=== PATIENT | male | born 1970 | race Caucasian/White ===

== ENCOUNTER 2019-05-09 18:01 | Inpatient (IN) | payer OTHER ==
--- NOTE | 2019-05-09 20:31 | PDOC ---
History of Present Illness - General Chief Complaint: Pain Stated Complaint: ABD PAIN Time Seen by Provider: 05/09/19 19:14 History Source: Patient - History of Present Illness Initial Comments: 05/09/19 20:50 Mr. Martell is a 48 y/o man with no PMH presenting with four days of worsening RUQ abdominal pain. He reports that the pain began all at once, rates the pain a 10/10, describes it as constant, and reports that it radiates through his abdomen but is worst at the RUQ. He reports that he has not had any appetite and has not eaten today, but denies any nausea or vomiting. He reports some diaphoresis. He denies any prior abdominal surgery, any prior kidney stones. He denies any fever, chills, fatigue, night sweats. Timing/Duration: other (4 days) Past History - Past Medical History Allergies/Adverse Reactions: Allergies Allergy/AdvReac Type Severity Reaction Status Date / Time No Known Allergies Allergy Verified 05/09/19 18:13 - Suicide/Smoking/Psychosocial Hx Smoking History: Never smoked Hx Alcohol Use: No Drug/Substance Use Hx: No Review of Systems - Review of Systems Able to Perform ROS?: Yes Comments:: 05/09/19 22:06 ROS: GENERAL/CONSTITUTIONAL: No fever or chills. No weakness. HEAD, EYES, EARS, NOSE AND THROAT: No change in vision. No ear pain or discharge. No sore throat. CARDIOVASCULAR: No chest pain or shortness of breath RESPIRATORY: No cough, wheezing, or hemoptysis. GASTROINTESTINAL: Diminished appetite. Abdominal pain. No nausea, vomiting, diarrhea or constipation. GENITOURINARY: No dysuria, frequency, or change in urination. MUSCULOSKELETAL: No joint or muscle swelling or pain. No neck or back pain. SKIN: No rash NEUROLOGIC: No headache, vertigo, loss of consciousness, or change in strength/ sensation. ENDOCRINE: No increased thirst. No abnormal weight change HEMATOLOGIC/LYMPHATIC: No anemia, easy bleeding, or history of blood clots. ALLERGIC/IMMUNOLOGIC: No hives or skin allergy. *Physical Exam - Vital Signs Last Vital Signs Temp Pulse Resp BP Pulse Ox 98.7 F 106 H 22 H 122/80 99 05/09/19 18:05 05/09/19 18:05 05/09/19 18:05 05/09/19 18:05 05/09/19 18:05 - Physical Exam Comments: 05/09/19 22:07 PE: GENERAL: Awake, alert, and fully oriented. Holding abdomen, grimacing. HEAD: No signs of trauma, normocephalic, atraumatic EYES: PERRLA, EOMI, sclera anicteric, conjunctiva clear ENT: Auricles normal inspection, hearing grossly normal, nares patent, oropharynx clear without exudates. Moist mucosa NECK: Normal ROM, supple, no lymphadenopathy, JVD, or masses LUNGS: No distress, speaks full sentences, clear to auscultation bilaterally HEART: Regular rate and rhythm, normal S1 and S2, no murmurs, rubs or gallops, peripheral pulses normal and equal bilaterally. ABDOMEN: Mild tenderness to palpation of R upper and R lower quadrants. +R CVA tenderness. Soft, nontender, normoactive bowel sounds. No guarding, no rebound. No masses EXTREMITIES : Normal inspection, Normal range of motion, no edema. No clubbing or cyanosis. SKIN: Warm, Dry, normal turgor, no rashes or lesions noted ED Treatment Course - LABORATORY CBC & Chemistry Diagram: 05/09/19 20:30 05/09/19 20:30 Medical Decision Making - Medical Decision Making 05/09/19 21:15 48 y/o M with no PMH presenting with 4 days of worsening abd pain localized to RUQ, diminished appetite, vague GI symptoms with mild tenderness to palpation and R CVA tenderness. Differential includes appendicitis, cholecystitis or other gallbladder pathology, and nephrolithiasis. Plan for basic labs, abdominal imaging. Plan: CBC CMP Lipase Lactate IV NS 1L Bolus 4 mg Zofran 4 mg Morphine Dispo: Pending labs and imaging 05/09/19 21:58 Initial labs within normal limits. Pending CT vs abdominal US 05/09/19 21:59 Patient signed out to Dr. Rico at end of shift. *DC/Admit/Observation/Transfer Diagnosis at time of Disposition: Abdominal pain Qualifiers: Abdominal location: right upper quadrant Qualified Code(s): R10.11 - Right upper quadrant pain - Referrals - Patient Instructions - Post Discharge Activity
[2019-05-09 20:46] LABS: BASO % 0.7 % (0-2.0); EOS % 1.3 % (0-4.5); HEMATOCRIT 46.2 % (35.4-49); HEMOGLOBIN 15.8 GM/dL (11.7-16.9); LYMPH % 14.4 % (8-40); MCH 31.2 pg (25.7-33.7); MCHC 34.2 g/dl (32.0-35.9); MEAN CELL VOLUME 91.1 fl (80-96); MEAN PLT VOLUME 7.8 fl (7.5-11.1); NEUT % 76.6 % (42.8-82.8); PLATELET COUNT 290 K/MM3 (134-434); RBC 5.07 M/mm3 (4.00-5.60); RDW 12.8 % (11.9-15.9); WHITE BLOOD COUNT 10.9 K/mm3 (4.0-10.0)
[2019-05-09] MEDS ORDERED: morphine CARPU-JECT 4 MG/1 ML DISP.SYRIN IVPUSH ONE (20:48)
[2019-05-09] MEDS ORDERED: ONDANSETRON 4 MG/2 ML VIAL IVPUSH ONE (20:48)
[2019-05-09] MEDS ORDERED: morphine SULFATE 4 MG/ML VIAL ONE (21:04)
[2019-05-09] MEDS ORDERED: ONDANSETRON 4 MG/2 ML VIAL ONE (21:04)
[2019-05-09 21:14] LABS: ALBUMIN 3.4 g/dl (3.4-5.0); BILIRUBIN,TOTAL 0.9 mg/dL (0.2-1); BLOOD UREA NITROGEN 12.9 mg/dL (7-18); CALCIUM 9.2 mg/dL (8.5-10.1); CREATININE 0.9 mg/dL (0.55-1.3); POTASSIUM 3.8 mmol/L (3.5-5.1); TOT PROT 6.9 g/dl (6.4-8.2)
--- NOTE | 2019-05-09 22:30 | PDOC ---
*Physical Exam - Vital Signs Last Vital Signs Temp Pulse Resp BP Pulse Ox 98.7 F 106 H 22 H 122/80 99 05/09/19 18:05 05/09/19 18:05 05/09/19 18:05 05/09/19 18:05 05/09/19 18:05 ED Treatment Course - LABORATORY CBC & Chemistry Diagram: 05/09/19 20:30 05/09/19 20:30 - ADDITIONAL ORDERS Additional order review: Laboratory Results 05/09/19 20:30 Sodium 138 Potassium 3.8 Chloride 104 Carbon Dioxide 26 Anion Gap 9 BUN 12.9 Creatinine 0.9 Est GFR (CKD-EPI)AfAm 118.30 Est GFR (CKD-EPI)NonAf 102.07 Random Glucose 93 Calcium 9.2 Total Bilirubin 0.9 AST 12 L ALT 29 Alkaline Phosphatase 61 Total Protein 6.9 Albumin 3.4 Lipase 100 05/09/19 20:30 RBC 5.07 MCV 91.1 MCHC 34.2 RDW 12.8 MPV 7.8 Neutrophils % 76.6 Lymphocytes % 14.4 Monocytes % 7.0 Eosinophils % 1.3 Basophils % 0.7 - Medications Given in the ED: ED Medications Discontinued Medications Generic Name Dose Route Start Last Admin Trade Name Freq PRN Reason Stop Dose Admin Morphine Sulfate 4 mg 05/09/19 20:48 05/09/19 21:15 Morphine Injection - IVPUSH 05/09/19 20:49 4 mg ONCE ONE Administration Ondansetron HCl 4 mg 05/09/19 20:48 05/09/19 21:15 Zofran Injection IVPUSH 05/09/19 20:49 4 mg ONCE ONE Administration Medical Decision Making - Medical Decision Making 05/09/19 22:00 Received sign out from resident Dr. Lyon. In short, the pt is a 48 y/o male presenting for RUQ abdominal pain. Labs unremarkable for significant derangement. Will f/u on pending CTAP. CTAB revealed acute appendicitis. Will prescribe Unasyn for abx coverage. Ordered CXR and EKG for admission. Made NPO. 05/09/19 23:[address] Manley, surgeon container finisher. Verbally appraised of the pts HPI, ED course, and current plan of management. Requests pt be admitted in anticipation of surgical intervention tomorrow. Discussed imaging and laboratory results with pt. Answered all questions. Pt expressed verbal understanding and agreement with plan for admission. States his pain has improved after the IV medication. Does not want any further pain medication at this time. Microblog sent to [facility] for admission. Awaiting call back. 05/09/19 23:[address] Tele[address] discussion with resident Dr. Barrientos. Verbally appraised of the pts HPI, ED course, and current plan of management. Will admit pt to med/surg for attending Dr. Mcdonnell. *DC/Admit/Observation/Transfer Diagnosis at time of Disposition: Abdominal pain Qualifiers: Abdominal location: right upper quadrant Qualified Code(s): R10.11 - Right upper quadrant pain Appendicitis, acute Qualifiers: Acute appendicitis type: unspecified acute appendicitis type Qualified Code(s) : K35.80 - Unspecified acute appendicitis - Discharge Dispostion Condition at time of disposition: Stable Decision to Admit order: Yes - Referrals - Patient Instructions - Post Discharge Activity
--- NOTE | 2019-05-09 23:21 | PDOC ---
Documentation entered by Navdeep Mitchell SCRIBE, acting as scribe for Vidya Hinton MD. Vidya Hinton MD: This documentation has been prepared by the Stephen darling Joel, SCRIBE, under my direction and personally reviewed by me in its entirety. I confirm that the documentation accurately reflects all work, treatment, procedures, and medical decision making performed by me. Attending Attestation - Resident Resident Name: Mohan Lyon - ED Attending Attestation I have performed the following: I have examined & evaluated the patient, The case was reviewed & discussed with the resident, I agree w/resident's findings & plan, Exceptions are as noted - HPI HPI: 05/09/19 20:45 The patient is a 48 year old male with no significant PMH who presents to the emergency department for evaluation of RUQ abdominal pain for the past 4 days. The patient denies chest pain, shortness of breath, headache and dizziness. Denies fever, chills, nausea, vomit, diarrhea and constipation. Denies dysuria, frequency, urgency and hematuria. Allergies: NKA Past surgical history: None reported. Social history: No reported cigarette, alcohol, or drug use. - Physicial Exam PE: 05/09/19 23:19 48-year-old male presents because of right-sided abdominal pain today head is normocephalic, atraumatic. Neck is supple Lungs are clear to auscultation bilaterally CVS regular rate and rhythm S1, S2 Abdomen rlq tenderness,no rebound no flank pain. Skin warm and dry. Neuro alert and oriented 3, ambulatory Psych appropriate - Medical Decision Making 05/09/19 23:20 48 yo male was evaluated by the radiologist that the CAT scan of the abdomen and pelvis shows acute appendicitis Patient was informed of the EKG appendicitis and the fact that he needed to have IV antibiotics and hospital admission. Impression acute appendicitis. Admitted to [facility]
[2019-05-09] MEDS ORDERED: AMPICILLIN NA/SULBACTAM NA 3 GM in SODIUM CHLORIDE 100 ML IVPB ONE (23:40)
[2019-05-09] MEDS ORDERED: LACTATED RINGERS SOLUTION 1,000 ML/1,000 ML INFUS.BAG IV SCH (23:45)
[2019-05-10] MEDS ORDERED: LACTATED RINGERS SOLUTION 1,000 ML IV SCH (00:15)
--- NOTE | 2019-05-10 00:22 | PN ---
Teaching Attending Note Name of Resident: Delio Mirza ATTENDING PHYSICIAN STATEMENT I saw and evaluated the patient. I reviewed the resident's note and discussed the case with the resident. I agree with the resident's findings and plan as documented. SUBJECTIVE: Patient is a 48 year old man with no PMH presenting with four days of worsening RUQ abdominal pain. He reports that the pain began all at once, rates the pain a 10/10, describes it as constant, and reports that it radiates through his abdomen but is worst at the RUQ. He reports that he has not had any appetite and has not eaten today, but denies any nausea or vomiting. He reports some diaphoresis. He denies any prior abdominal surgery, any prior kidney stones. He denies any fever, chills, fatigue, night sweats. OBJECTIVE: Alert Vital Signs Period Temp Pulse Resp BP Sys/Rivera Pulse Ox Last 24 Hr 98.7 F 96-106 18-22 122-126/80-83 99-99 HEENT: No Jaundice, eye redness or discharge, PERRLA, EOMI. Normocephalic, atraumatic. External ears are normal and hearing is grossly intact. No nasal discharge. Neck: Supple, nontender. No palpable adenopathy or thyromegaly. No JVD Chest: Good effort. Clear to auscultation and percussion. Heart: Regular. No S3, rub or murmur Abdomen: Not distended, soft, nontender and no HSM. No rebound or guarding. Normal bowel sounds. Ext: Peripheral pulses intact. No leg edema. Skin: Warm and dry. No petechiae, rash or ecchymosis. Neuro: Alert. Oriented x3. CN 2-12 grossly intact. Sensation grossly intact in all four extremities and DTR are symmetric. Psych: Appropriate mood and affect. Good insight. Current Medications Generic Name Dose Route Start Last Admin Trade Name Freq PRN Reason Stop Dose Admin Lactated Ringer's 1,000 ml in 1,000 mls @ 125 mls/hr 05/09/19 23:45 Lactated Ringers Solution IV ASDIR ELIESER Lactated Ringer's 1,000 mls @ 125 mls/hr 05/10/19 00:15 Lactated Ringers Solution IV ASDIR ELIESER Abnormal Lab Results 05/09/19 05/09/19 20:30 20:30 WBC 10.9 H Absolute Neuts (auto) 8.4 H AST 12 L ASSESSMENT AND PLAN: 1. Appendicitis - CT abdomen/pelvis without contrast revealed appendicitis and probable diffuse hepatic steatosis. Patient got unasyn, morphine IV and IV zofran in the ER. Surgery consulted. For possible appendectomy in the morning. Will keep him NPO and continue IV LR. EKG shows sinus tachycardia with no significant ST-T wave changes. Outpatient GI follow up for hepatic steatosis. 2. DVT prophylaxis - SCD 3. Advance directives - Full code
--- NOTE | 2019-05-10 00:43 | HP ---
CHIEF COMPLAINT: Abdominal Pain PCP: None HISTORY OF PRESENT ILLNESS: 48 M with no significant PMH who presents today with abdominal pain of 4 days. His pain started on Wednesday evening but quickly subsided, and restarted again on Wednesday. His abdominal pain was initially localized to the right upper quadrant but then generalized to the entirety of his abdomen that is worse with movement and rates it as a 10/10 even when sitting now. He had decreased appetite, and only drank coffee today. He attempted to go to work the day before admission but was not able to stay longer than 2 hours due to pain. He has had no change in his regular diet, no sick contacts, and no one at home is experiencing the same symptoms he is. He does not endorse any subjective fevers , chest pain, shortness of breath, headaches, weakness, dizziness, nausea, vomiting, or diarrhea. ER course was notable for: (1)EKG was completed- showed sinus tachy and right axis deviation (2)Abdominal/ Pelvis CT was completed which showed acute appendicitis and possible diffuse hepatic steatosis (3)Zofran 4 mg, Morphine 4 mg, Unasyn 3 gm, and Recent Travel:None PAST MEDICAL HISTORY: None PAST SURGICAL HISTORY: None Social History: Smoking:Denies Alcohol:Occasional use Drugs: Denies Immigrated from [place] in 2007, works as a construction contractor, lives with 1 roommate, self-pay for medical care. Family History: Denies Allergies No Known Allergies Allergy (Verified 05/09/19 18:13) HOME MEDICATIONS: Denies REVIEW OF SYSTEMS In addition to above CONSTITUTIONAL: diaphoresis, loss of appetite Absent: fever, chills, generalized weakness, malaise, weight change CARDIOVASCULAR: Absent: chest pain, syncope, palpitations, irregular heart rate, lightheadedness RESPIRATORY: Absent: cough, shortness of breath, dyspnea with exertion GASTROINTESTINAL:abdominal pain, abdominal distension Absent: nausea, vomiting, diarrhea, constipation, GENITOURINARY: Absent: dysuria, frequency, urgency, hesitancy, hematuria, flank pain, genital pain MUSCULOSKELETAL: Absent: myalgia, arthralgia ENDOCRINE: Absent: heat intolerance, cold intolerance NEUROLOGIC: Absent: headache, focal weakness or paresthesias, dizziness PHYSICAL EXAMINATION Vital Signs - 24 hr 05/09/19 05/10/19 18:05 00:13 Temperature 98.7 F Pulse Rate 106 H Pulse Rate [ 96 H Right] Respiratory 22 H 18 Rate Blood Pressure 122/80 Blood Pressure 126/83 [Right Arm] O2 Sat by Pulse 99 99 Oximetry (%) GENERAL: Awake, alert, and fully oriented, in no acute distress. HEAD: Normal with no signs of trauma. EYES: Pupils equal, round and reactive to light, extraocular movements intact, sclera anicteric, conjunctiva clear. No lid lag. EARS, NOSE, THROAT: Ears normal, nares patent, oropharynx clear without exudates. Moist mucous membranes. NECK: Normal range of motion, supple without lymphadenopathy, JVD, or masses. LUNGS: Breath sounds equal, clear to auscultation bilaterally. No wheezes, and no crackles. No accessory muscle use. HEART: Regular rate and rhythm, normal S1 and S2 without murmur, rub or gallop. ABDOMEN: Soft, nontender, not distended, normoactive bowel sounds, no guarding, no rebound, no masses. No hepatomegaly or splenomegaly. MUSCULOSKELETAL: Normal range of motion at all joints. No bony deformities or tenderness. No CVA tenderness. UPPER EXTREMITIES: 2+ pulses, warm, well-perfused. No cyanosis. No clubbing. No peripheral edema. LOWER EXTREMITIES: 2+ pulses, warm, well-perfused. No calf tenderness. No peripheral edema. NEUROLOGICAL: Cranial nerves II-XII intact. Normal speech. Normal gait. PSYCHIATRIC: Cooperative. Good eye contact. Appropriate mood and affect. SKIN: Warm, dry, normal turgor, no rashes or lesions noted, normal capillary refill. Laboratory Results - last 24 hr 05/09/19 05/09/19 05/09/19 20:30 20:30 22:05 WBC 10.9 H RBC 5.07 Hgb 15.8 Hct 46.2 MCV 91.1 MCH 31.2 MCHC 34.2 RDW 12.8 Plt Count 290 MPV 7.8 Absolute Neuts (auto) 8.4 H Neutrophils % 76.6 Lymphocytes % 14.4 Monocytes % 7.0 Eosinophils % 1.3 Basophils % 0.7 Nucleated RBC % 0 Sodium 138 Potassium 3.8 Chloride 104 Carbon Dioxide 26 Anion Gap 9 BUN 12.9 Creatinine 0.9 Est GFR (CKD-EPI)AfAm 118.30 Est GFR (CKD-EPI)NonAf 102.07 Random Glucose 93 Lactic Acid 0.7 Calcium 9.2 Total Bilirubin 0.9 AST 12 L ALT 29 Alkaline Phosphatase 61 Total Protein 6.9 Albumin 3.4 Lipase 100 ASSESSMENT/PLAN: 48 M who presents today with appendicitis. 1)Appendicitis General Surgery Consulted EKG and Chest X-Ray ordered CBC, CMP, PT, PTT, Type and Screen ordered Unasyn given by ER LR @125 ml/hr Morphine 2mg IV PRN Q6H NPO 2)Potential hepatic steatosis Consider GI follow up after appendectomy DVT Prophylaxis: SCDs F: LR @ 125 E: Monitor BMP N: NPO for potential procedure tomorrow Dispo: Admitted to med/surg floors. Problem List - Problem (1) Abdominal pain Code(s): R10.9 - UNSPECIFIED ABDOMINAL PAIN Qualifiers: Abdominal location: right upper quadrant Qualified Code(s): R10.11 - Right upper quadrant pain (2) Appendicitis, acute Code(s): K35.80 - UNSPECIFIED ACUTE APPENDICITIS Qualifiers: Acute appendicitis type: unspecified acute appendicitis type Qualified Code (s): K35.80 - Unspecified acute appendicitis Visit type - Emergency Visit Emergency Visit: Yes ED Registration Date: 05/09/19 Care time: The patient presented to the Emergency Department on the above date and was hospitalized for further evaluation of their emergent condition. - New Patient This patient is new to me today: Yes Date on this admission: 05/09/19 - Critical Care Critical Care patient: No ATTENDING PHYSICIAN STATEMENT I saw and evaluated the patient. I reviewed the resident's note and discussed the case with the resident. I agree with the resident's findings and plan as documented. SUBJECTIVE: OBJECTIVE: ASSESSMENT AND PLAN:
[2019-05-10 01:53] VITALS: BMI 25.0
[2019-05-10] MEDS ORDERED: MORPHINE SULFATE 2 MG/ML VIAL IM PRN ×2 (02:57→16:00)
--- NOTE | 2019-05-10 08:17 | EKG ---
Test Reason : Blood Pressure : / mmHG Vent. Rate : 105 BPM Atrial Rate : 105 BPM P-R Int : 132 ms QRS Dur : 082 ms QT Int : 326 ms P-R-T Axes : 038 251 007 degrees QTc Int : 430 ms SINUS TACHYCARDIA RIGHT SUPERIOR AXIS DEVIATION ABNORMAL ECG NO PREVIOUS ECGS AVAILABLE Confirmed by FREEMAN GORDON, ADDIS ([id number]) on 05/10/2019 8:16:35 AM Referred By: Confirmed By:ADDIS MILLARD MD
[2019-05-10 08:54] LABS: ALBUMIN 2.9 g/dl (3.4-5.0); BILIRUBIN,TOTAL 1.4 mg/dL (0.2-1); BLOOD UREA NITROGEN 11.4 mg/dL (7-18); CALCIUM 8.1 mg/dL (8.5-10.1); CREATININE 0.8 mg/dL (0.55-1.3); MAGNESIUM 2.2 mg/dL (1.8-2.4); POTASSIUM 3.9 mmol/L (3.5-5.1)
[2019-05-10 08:58] LABS: BASO % 0.4 % (0-2.0); EOS % 2.1 % (0-4.5); HEMATOCRIT 40.2 % (35.4-49); HEMOGLOBIN 13.9 GM/dL (11.7-16.9); LYMPH % 12.5 % (8-40); MCH 31.7 pg (25.7-33.7); MCHC 34.6 g/dl (32.0-35.9); MEAN CELL VOLUME 91.4 fl (80-96); MONO % 8.8 % (3.8-10.2); NEUT % 76.2 % (42.8-82.8); PLATELET COUNT 283 K/MM3 (134-434); RBC 4.39 M/mm3 (4.00-5.60); RDW 12.5 % (11.9-15.9)
[2019-05-10 09:18] LABS: INR 1.21 (0.83-1.09); PROTHROMBIN TIME (PATIENT) 14.3 SEC (9.7-13.0)
[2019-05-10 09:20] LABS: ACTIVATED PTT 34.1 SECONDS (25.2-36.5)
--- NOTE | 2019-05-10 09:22 | CONSULT ---
- Consultation REQUESTING PROVIDER: CONSULT REQUEST: We have been asked to surgically evaluate this patient for ( appendicitis). PCP:Mehnaz Sykes HISTORY OF PRESENT ILLNESS: 48 y/o M w/ no significant PMHx (has physical yearly) admitted after presenting to the ER with abdominal pain. Pt reports he began having epigastric pain on Wednesday, however it subsided. Wednesday pt reports working outdoors in the heat for the majority of the day. His pain returned shortly after he began working, however he attributed it to the extreme heat. Wednesday pt woke with nausea and called out of work. Reports worsening of pain Wednesday and Wednesday with accompanying nausea. Denies vomiting or diarrhea. Had a Bm yesterday which he reports was normal. States he has been eating without issue. Reports pain localized to the right upper quadrant yesterday and was 10/10. Pt was seen at the urgent care he visits and referred to the ED. Went to [facility] ED, however left as he was told he couldn't be treated due to lack of medical coverage. Denies fevers, chest pain, shortness of breath, headaches, weakness, dizziness. CT scan + for acute appendicitis. PMHx: none PSHx: denies Allergies Allergy/AdvReac Type Severity Reaction Status Date / Time No Known Allergies Allergy Verified 05/09/19 18:13 REVIEW OF SYSTEMS: CONSTITUTIONAL: Absent: fever, chills, diaphoresis CARDIOVASCULAR: Absent: chest pain, syncope RESPIRATORY: Absent: cough, shortness of breath GASTROINTESTINAL: + abdominal pain, nausea, (-) vomiting, diarrhea PHYSICAL EXAM: GENERAL: Awake, alert, and fully oriented, in no acute distress. HEAD: Normal with no signs of trauma. LUNGS: Unlabored on RA. No accessory muscle use. ABDOMEN: Soft, + mild ttp ruq, +bowel sounds, no guarding, no rebound. Vital Signs Temperature 99 F 05/10/19 01:51 Pulse Rate 87 05/10/19 01:51 Respiratory Rate 18 05/10/19 01:51 Blood Pressure 104/54 L 05/10/19 01:51 O2 Sat by Pulse Oximetry (%) 95 05/10/19 01:43 Lab Results WBC 10.0 K/mm3 (4.0-10.0) 05/10/19 07:00 RBC 4.39 M/mm3 (4.00-5.60) 05/10/19 07:00 Hgb 13.9 GM/dL (11.7-16.9) 05/10/19 07:00 Hct 40.2 % (35.4-49) 05/10/19 07:00 MCV 91.4 fl (80-96) 05/10/19 07:00 MCHC 34.6 g/dl (32.0-35.9) 05/10/19 07:00 RDW 12.5 % (11.9-15.9) 05/10/19 07:00 Plt Count 283 K/MM3 (134-434) 05/10/19 07:00 Sodium 140 mmol/L (136-145) 05/10/19 07:00 Potassium 3.9 mmol/L (3.5-5.1) 05/10/19 07:00 Chloride 105 mmol/L (98-107) 05/10/19 07:00 Carbon Dioxide 25 mmol/L (21-32) 05/10/19 07:00 Anion Gap 10 MMOL/L (8-16) 05/10/19 07:00 BUN 11.4 mg/dL (7-18) 05/10/19 07:00 Creatinine 0.8 mg/dL (0.55-1.3) 05/10/19 07:00 Random Glucose 87 mg/dL (74-106) 05/10/19 07:00 Calcium 8.1 mg/dL (8.5-10.1) L 05/10/19 07:00 Blood Type O POSITIVE 05/10/19 07:00 Antibody Screen Negative 05/10/19 07:00 CT A/P (05/09/19): An inflamed retrocecal appendix is noted. A small radiopaque intraluminal appendicolith is visualized. Periappendiceal edema is noted. There is no discrete abscess on noncontrast imaging. No definite evidence of pneumoperitoneum or bowel obstruction. Associated mild inflammatory thickening of the right anterior pararenal fascia is seen. A/P: 48 y/o M w/ no significant PMHx admitted after presenting to the ER with abdominal pain. CT scan + for acute appendicitis. Afebrile, no leukocytosis -Plan for OR early this afternoon for laparoscopic, possible open appendectomy -D/w pt at length, all questions answered -Keep npo, ivf -Consent per attending d/w attending Dr Manley
[2019-05-10 10:44] LABS: PH,URINE 7.5 (5.0-8.0); URINE APPEARANCE CLEAR; URINE BILIRUBIN NEGATIVE (NEGATIVE); URINE COLOR YELLOW; URINE GLUCOSE (UA) NEGATIVE (NEGATIVE); URINE KETONE 2+ (NEGATIVE); URINE LEUK ESTERASE NEGATIVE (NEGATIVE); URINE NITRITE NEGATIVE (NEGATIVE); URINE PROTEIN NEGATIVE (NEGATIVE)
[2019-05-10] MEDS ORDERED: BUPIVACAINE HCL/PF 0.5% (5MG/ML) 10 ML VIAL ONE (12:43)
--- NOTE | 2019-05-10 12:49 | PN ---
Progress Note (short form) - Note Progress Note: Attending Surgeon Patient seen and evaluated; concur w/ a/p as outlined by ROSHAN Swain; for laparoscopic possible open appendectomy; r/b/t/a's d/w the patient and informed consent obtained. Milton Manley MD FACS
[2019-05-10] MEDS ORDERED: cefOXitin SODIUM 1 GM VIAL (RESTRICTED TO ID) IVPB ONE (13:28)
[2019-05-10] MEDS ORDERED: MIDAZOLAM HCL 2 MG/2 ML SINGLE DOSE VIAL ONE ×2 (13:31→15:12)
[2019-05-10] MEDS ORDERED: CEFOXITIN SODIUM 1 GM IVPB ONE (13:32)
[2019-05-10] MEDS ORDERED: PROPOFOL 20 ML ONE ×4 (13:35→15:12)
[2019-05-10] MEDS ORDERED: ROCURONIUM BROMIDE 50 MG/5 ML SYRINGE ONE ×2 (13:35→15:12)
[2019-05-10] MEDS ORDERED: BUPIVACAINE HCL/PF 0.5% (5MG/ML) 10 ML VIAL IJ ONE (14:00)
--- NOTE | 2019-05-10 14:35 | PN ---
Teaching Attending Note Name of Resident: Krys Conley ATTENDING PHYSICIAN STATEMENT I saw and evaluated the patient. I reviewed the resident's note and discussed the case with the resident. I agree with the resident's findings and plan as documented. SUBJECTIVE: No fever or chills. feels better. No MCKEON. no N/V OBJECTIVE: NAD Cv : RRR Lungs: CTAB Ext : No edmea Abd: soft, ND, tender in RLQ, and suprapubic tenderness . NL BS . No rebound tenderness or quarding ASSESSMENT AND PLAN: 48 y/o man with no PMH who presented with abd pain and was found to have acute appendicitis 1- Acute appendicitis: - AbxL Unasyn - NPO - IVF - to OR per sx
[2019-05-10] MEDS ORDERED: AMPICILLIN NA/SULBACTAM NA 1.5 GM in SODIUM CHLORIDE 100 ML IVPB SCH (15:00)
[2019-05-10] MEDS ORDERED: DEXAMETHASONE SOD PHOSPHATE 4 MG/1 ML VIAL ONE (15:13)
[2019-05-10] MEDS ORDERED: LIDOCAINE HCL/PF 2% SDV 5ML VIAL ONE (15:13)
[2019-05-10] MEDS ORDERED: ceFAZolin SODIUM 1 GM VIAL ONE (15:13)
[2019-05-10] MEDS ORDERED: KETOROLAC TROMETHAMINE 30 MG/1 ML VIAL ONE ×2 (15:13→15:49)
[2019-05-10] MEDS ORDERED: SODIUM CHLORIDE 0.9% P/F 10 ML VIAL IJ ONE (15:13)
--- NOTE | 2019-05-10 15:34 | PN ---
Physical Exam: SUBJECTIVE: Patient seen and examined at bedside. No acute events overnight. OBJECTIVE: Vital Signs Period Temp Pulse Resp BP Sys/Rivera Pulse Ox Last 24 Hr 98.7 F-99.7 F 87-106 18-22 101-126/54-83 95-99 GENERAL: The patient is awake, alert, and fully oriented, in no acute distress. HEAD: Normal with no signs of trauma. EYES: sclera anicteric, conjunctiva clear. No ptosis. NECK: Trachea midline, full range of motion, supple. LUNGS: Breath sounds equal, clear to auscultation bilaterally, no wheezes, no crackles, no accessory muscle use. HEART: Regular rate and rhythm, S1, S2 without murmur, rub or gallop. ABDOMEN: Soft, tender in RLQ positive mcburneys sign, negative rovsings sign, nondistended, normoactive bowel sounds, . Laboratory Results - last 24 hr 05/09/19 05/09/19 05/09/19 20:30 20:30 22:05 WBC 10.9 H RBC 5.07 Hgb 15.8 Hct 46.2 MCV 91.1 MCH 31.2 MCHC 34.2 RDW 12.8 Plt Count 290 MPV 7.8 Absolute Neuts (auto) 8.4 H Neutrophils % 76.6 Lymphocytes % 14.4 Monocytes % 7.0 Eosinophils % 1.3 Basophils % 0.7 Nucleated RBC % 0 PT with INR INR PTT (Actin FS) Sodium 138 Potassium 3.8 Chloride 104 Carbon Dioxide 26 Anion Gap 9 BUN 12.9 Creatinine 0.9 Est GFR (CKD-EPI)AfAm 118.30 Est GFR (CKD-EPI)NonAf 102.07 Random Glucose 93 Lactic Acid 0.7 Calcium 9.2 Magnesium Total Bilirubin 0.9 AST 12 L ALT 29 Alkaline Phosphatase 61 Total Protein 6.9 Albumin 3.4 Lipase 100 Urine Color Urine Appearance Urine pH Ur Specific [place] Urine Protein Urine Glucose (UA) Urine Ketones Urine Blood Urine Nitrite Urine Bilirubin Urine Urobilinogen Ur Leukocyte Esterase Blood Type Antibody Screen 05/10/19 05/10/19 05/10/19 07:00 07:00 07:00 WBC 10.0 RBC 4.39 Hgb 13.9 Hct 40.2 MCV 91.4 MCH 31.7 MCHC 34.6 RDW 12.5 Plt Count 283 MPV 8.0 Absolute Neuts (auto) 7.6 Neutrophils % 76.2 Lymphocytes % 12.5 Monocytes % 8.8 Eosinophils % 2.1 Basophils % 0.4 Nucleated RBC % 0 PT with INR 14.30 H INR 1.21 H PTT (Actin FS) 34.1 Sodium 140 Potassium 3.9 Chloride 105 Carbon Dioxide 25 Anion Gap 10 BUN 11.4 Creatinine 0.8 Est GFR (CKD-EPI)AfAm 124.16 Est GFR (CKD-EPI)NonAf 107.13 Random Glucose 87 Lactic Acid Calcium 8.1 L Magnesium 2.2 Total Bilirubin 1.4 H AST 11 L ALT 23 Alkaline Phosphatase 52 Total Protein 6.0 L Albumin 2.9 L Lipase Urine Color Urine Appearance Urine pH Ur Specific [place] Urine Protein Urine Glucose (UA) Urine Ketones Urine Blood Urine Nitrite Urine Bilirubin Urine Urobilinogen Ur Leukocyte Esterase Blood Type Antibody Screen 05/10/19 05/10/19 05/10/19 07:00 09:25 10:16 WBC RBC Hgb Hct MCV MCH MCHC RDW Plt Count MPV Absolute Neuts (auto) Neutrophils % Lymphocytes % Monocytes % Eosinophils % Basophils % Nucleated RBC % PT with INR INR PTT (Actin FS) Sodium Potassium Chloride Carbon Dioxide Anion Gap BUN Creatinine Est GFR (CKD-EPI)AfAm Est GFR (CKD-EPI)NonAf Random Glucose Lactic Acid Calcium Magnesium Total Bilirubin AST ALT Alkaline Phosphatase Total Protein Albumin Lipase Urine Color Yellow Urine Appearance Clear Urine pH 7.5 Ur Specific [place] 1.010 Urine Protein Negative Urine Glucose (UA) Negative Urine Ketones 2+ H Urine Blood Negative Urine Nitrite Negative Urine Bilirubin Negative Urine Urobilinogen 1.0 Ur Leukocyte Esterase Negative Blood Type O POSITIVE O POSITIVE Antibody Screen Negative Active Medications Generic Name Dose Route Start Last Admin Trade Name Freq PRN Reason Stop Dose Admin Lactated Ringer's 1,000 ml in 1,000 mls @ 125 mls/hr 05/09/19 23:45 05/10/19 00:40 Lactated Ringers Solution IV 125 mls/hr ASDIR ELIESER Administration Ampicillin Sodium/Sulbactam 100 mls @ 200 mls/hr 05/10/19 15:00 Sodium 1.5 gm/ Sodium Chloride IVPB Q6H-IV ELIESER Morphine Sulfate 2 mg 05/10/19 02:57 Morphine Sulfate IM 05/11/19 02:56 Q6H PRN PAIN LEVEL 7 - 10 ASSESSMENT/PLAN: This is a 48 y/o M with no PMH who presented with ruq abdominal pain that generalized to his entire abdomen that worsened with movement and was 10/10 on pain scale. #Acute appendicitis - CT abd pelvis showed acute appendicitis, possible diffuse hepatic steatosis -Dr Manley did a lap appy and it went well. - will put him back on a regular diet as tolerated - pain control - incentive spirometry qid - will monitor pt Hb, transfuse if Hb <7. #Possible hepatic steatosis -follow up with GI as o/p DVT ppx: can put patient back on 40 lovenox sq. F- LR at 125mL/hr E- will monitor lytes N- regular diet Visit type - Emergency Visit Emergency Visit: No - New Patient This patient is new to me today: Yes Date on this admission: 05/10/19 - Critical Care Critical Care patient: No - Discharge Referral Referred to [facility] Med P.C.: No ATTENDING PHYSICIAN STATEMENT I saw and evaluated the patient. I reviewed the resident's note and discussed the case with the resident. I agree with the resident's findings and plan as documented. SUBJECTIVE: OBJECTIVE: ASSESSMENT AND PLAN:
[2019-05-10] MEDS ORDERED: ACETAMINOPHEN 325 MG TABLET (FP) PO PRN (15:42)
[2019-05-10] MEDS ORDERED: ACETAMINOPHEN INJECTION 100 ML IVPB ONE (15:49)
--- NOTE | 2019-05-10 15:52 | OP ---
Operative Note - Note: Operative Date: 05/10/19 Pre-Operative Diagnosis: Acute appendicitis Operation: Laparoscopic appendectomy Findings: retrocecal appendix Post-Operative Diagnosis: Same as Pre-op Surgeon: Milton Manley Pillar Worker: Juanito Swain Anesthesiologist/AUTO WHEEL ALIGNMENT SPECIALIST: Divina Clark MD Anesthesia: General, Local (14cc .25% marcaine ) Specimens Removed: appendix Estimated Blood Loss (mls): 15 (ml) Fluid Volume Replaced (mls): 800 (ml LR) Operative Report Dictated: Yes
[2019-05-10] MEDS: KETOROLAC TROMETHAMINE 30 MG/1 ML VIAL IVPUSH ONE ×2 (15:55→17:21)
[2019-05-10] MEDS: ACETAMINOPHEN 1000 MG/100 ML VIAL (NON FORMULARY) IVPB ONE ×2 (16:00→17:20)
[2019-05-10] MEDS ORDERED: LACTATED RINGERS SOLUTION 1,000 ML/1,000 ML INFUS.BAG IV SCH (16:00)
[2019-05-10] MEDS ORDERED: ONDANSETRON 4 MG/2 ML VIAL IVPUSH PRN (16:15)
[2019-05-11] MEDS: ACETAMINOPHEN 325 MG TABLET (FP) PO PRN ×4 (01:32→20:27)
[2019-05-11 07:39] LABS: BASO % 0.2 % (0-2.0); EOS % 0.5 % (0-4.5); HEMATOCRIT 37.7 % (35.4-49); HEMOGLOBIN 12.9 GM/dL (11.7-16.9); LYMPH % 9.4 % (8-40); MCH 31.3 pg (25.7-33.7); MCHC 34.1 g/dl (32.0-35.9); MEAN CELL VOLUME 91.7 fl (80-96); MEAN PLT VOLUME 7.7 fl (7.5-11.1); MONO % 7.1 % (3.8-10.2); NEUT % 82.8 % (42.8-82.8); PLATELET COUNT 277 K/MM3 (134-434); RBC 4.12 M/mm3 (4.00-5.60); WHITE BLOOD COUNT 10.9 K/mm3 (4.0-10.0)
[2019-05-11 08:12] LABS: ALBUMIN 2.3 g/dl (3.4-5.0); BILIRUBIN,TOTAL 0.6 mg/dL (0.2-1); CREATININE 0.7 mg/dL (0.55-1.3); POTASSIUM 3.9 mmol/L (3.5-5.1)
[2019-05-11] MEDS: oxyCODONE HCL 5 MG TABLET PO PRN ×2 (08:12→13:38)
--- NOTE | 2019-05-11 09:49 | SPA.POSTOP ---
- POST-OP NOTE POD #1 s/p lap appy Denies n/v, CP or SOB. Tolerated oral pain medications and sip of water. Urinating without difficulty, non-bloody. Last Vital Signs Temp Pulse Resp BP Pulse Ox 98.9 F 88 20 98/56 L 97 05/11/19 06:50 05/11/19 06:50 05/11/19 06:50 05/11/19 06:50 05/10/19 21:00 Physical Exam General: No acute distress. Pulm: Clear to auscultation bilat anteriorly Cor: Regular rhythm Abd: Soft. inc tenderness/supra-pubic area. No distention. LE: Soft, non-tender bilat. SCD's bilat and TEDs in place. CBC, BMP 05/11/19 06:35 05/11/19 06:35 A/P: 48 yo male s/p lap appy for acute appendicitis Pt seen today with Dr. Manley Plan is to begin clears and advance as tolerated Oral pain medications as needed Ambulate/Incentive spirometer/OOB
[2019-05-11] MEDS ORDERED: ENOXAPARIN NA (PORCINE) 60 MG/0.6 ML DISP.SYRIN SQ SCH (10:45)
--- NOTE | 2019-05-11 13:22 | PN ---
Progress Note (short form) - Note Progress Note: Anesthesia POD#1 S/P Lap Appendectomy under GA VSS,no N/V,taking orals,pain is bearable. No complications to anesthesia seen. Zoe Naidu MD.
--- NOTE | 2019-05-11 15:52 | SURG ---
Surgery Client Experience Consultant Note Client Experience Consultant: Juanito Swain PA-C (Suzy) Date of Service: 05/10/19 Diagnosis: Acute appendicitis Procedure: Laparoscopic appendectomy I was present for the entirety of the operative procedure. For further detail, please refer to operative report. Visit type - Case Type Case Type: ED Admission - Emergency Emergency Visit: Yes ED Registration Date: 05/09/19 Care time: The patient presented to the Emergency Department on the above date and was hospitalized for further evaluation of their emergent condition. - New patient This patient is new to me today: Yes Date on this admission: 05/11/19 - Critical Care Critical Care patient: No
--- NOTE | 2019-05-11 16:16 | PN ---
Teaching Attending Note Name of Resident: Krys Conley ATTENDING PHYSICIAN STATEMENT I saw and evaluated the patient. I reviewed the resident's note and discussed the case with the resident. I agree with the resident's findings and plan as documented. SUBJECTIVE: Abd pain, at incision sites . Handkerchief Folder N/V . tolerated diet . passed flatus OBJECTIVE: NAD CV: RRR Lungs: CTAB Ext : No edema Abd: soft, , tender around incision . nL BS. slightly distended ASSESSMENT AND PLAN: 48 y/o man with no PMH who presented with abd pain and was found to have acute appendicitis 1- Acute appendicitis: s/p appendectomy - post op fever within 24 hours . will monitor and wi work up if it cont beyond 24 hr - advance diet to regular -dc IVF will assess tomorrow. has fever
--- NOTE | 2019-05-11 17:20 | PN ---
Physical Exam: SUBJECTIVE: Patient seen and examined at bedside, tender to palpation of abdomen. Febrile 101 temp overnight tylenol subsided it. OBJECTIVE: Vital Signs Period Temp Pulse Resp BP Sys/Rivera Pulse Ox Last 24 Hr 98.9 F-102.2 F 86-104 18-20 98-108/56-67 97-99 GENERAL: The patient is awake, alert, and fully oriented, in slight acute distress. HEAD: Normal with no signs of trauma. NECK: supple. LUNGS: Breath sounds equal, clear to auscultation bilaterally, no wheezes, no crackles, no accessory muscle use. HEART: Regular rate and rhythm, S1, S2 without murmur, rub or gallop. ABDOMEN: Soft, tender, distended, normoactive bowel sounds, slight guarding. EXTREMITIES: 2+ pulses, warm, well-perfused, no edema. NEUROLOGICAL: Cranial nerves II through XII grossly intact. Normal speech, gait not observed. PSYCH: Normal mood, normal affect. SKIN: Warm, dry, no rashes or lesions noted Laboratory Results - last 24 hr 05/11/19 05/11/19 06:35 06:35 WBC 10.9 H RBC 4.12 Hgb 12.9 Hct 37.7 MCV 91.7 MCH 31.3 MCHC 34.1 RDW 13.0 Plt Count 277 MPV 7.7 Absolute Neuts (auto) 9.0 H Neutrophils % 82.8 Lymphocytes % 9.4 D Monocytes % 7.1 Eosinophils % 0.5 Basophils % 0.2 Nucleated RBC % 0 Sodium 137 Potassium 3.9 Chloride 105 Carbon Dioxide 27 Anion Gap 6 L BUN 11.0 Creatinine 0.7 Est GFR (CKD-EPI)AfAm 131.17 Est GFR (CKD-EPI)NonAf 113.17 Random Glucose 100 Calcium 8.0 L Total Bilirubin 0.6 AST 15 ALT 26 Alkaline Phosphatase 44 L Total Protein 5.0 L Albumin 2.3 L Active Medications Generic Name Dose Route Start Last Admin Trade Name Freq PRN Reason Stop Dose Admin Acetaminophen 650 mg 05/10/19 21:30 05/11/19 14:51 Tylenol - PO 650 mg Q4H PRN Administration PAIN OR FEVER Enoxaparin Sodium 40 mg 05/12/19 10:00 Lovenox - SQ DAILY ELIESER Ondansetron HCl 4 mg 05/10/19 16:15 Zofran Injection IVPUSH Q6H PRN NAUSEA AND/OR VOMITING Oxycodone HCl 5 mg 05/10/19 15:42 05/11/19 13:38 Roxicodone - PO 5 mg Q6H PRN Administration PAIN LEVEL 1-5 ASSESSMENT/PLAN: 48 y/o man with no PMH who presented with abd pain and was found to have acute appendicitis #Acute appendictis -s/p lap appy -febrile -tylenol for temp >100.4 - potentially normal postop within 24 hr window, if it persists will do further w/u. - Dr. Manley (surgery) - appreci recs Visit type - Emergency Visit Emergency Visit: No - New Patient This patient is new to me today: No - Critical Care Critical Care patient: No - Discharge Referral Referred to [facility] Med P.C.: No ATTENDING PHYSICIAN STATEMENT I saw and evaluated the patient. I reviewed the resident's note and discussed the case with the resident. I agree with the resident's findings and plan as documented. SUBJECTIVE: OBJECTIVE: ASSESSMENT AND PLAN:
[2019-05-12] MEDS: ACETAMINOPHEN 325 MG TABLET (FP) PO PRN ×2 (03:48→17:12)
[2019-05-12 07:08] LABS: BASO % 0.5 % (0-2.0); EOS % 0.9 % (0-4.5); HEMATOCRIT 36.7 % (35.4-49); HEMOGLOBIN 12.6 GM/dL (11.7-16.9); LYMPH % 6.8 % (8-40); MCH 31.6 pg (25.7-33.7); MCHC 34.3 g/dl (32.0-35.9); MEAN CELL VOLUME 92.3 fl (80-96); MEAN PLT VOLUME 7.5 fl (7.5-11.1); MONO % 6.5 % (3.8-10.2); NEUT % 85.3 % (42.8-82.8); PLATELET COUNT 282 K/MM3 (134-434); RBC 3.98 M/mm3 (4.00-5.60); RDW 12.8 % (11.9-15.9)
[2019-05-12] MEDS: oxyCODONE HCL 5 MG TABLET PO PRN ×3 (08:21→22:11)
[2019-05-12 08:36] LABS: ALBUMIN 2.2 g/dl (3.4-5.0); BILIRUBIN,TOTAL 0.5 mg/dL (0.2-1); BLOOD UREA NITROGEN 7.1 mg/dL (7-18); CREATININE 0.7 mg/dL (0.55-1.3); POTASSIUM 3.8 mmol/L (3.5-5.1); TOT PROT 5.1 g/dl (6.4-8.2)
--- NOTE | 2019-05-12 08:53 | CON.ID ---
Consult Consult Specialty:: infectious diseases Referred by:: Reason for Consultation:: post op,fever,leukocytosis - History of Present Illness Chief Complaint: ac appendicitis,post op History of Present Illness: 48 M with no significant PMH who presented with abdominal pain of 4 days. pain started on Wednesday evening but quickly subsided, and restarted again on Wednesday. His abdominal pain was initially localized to the right upper quadrant but then generalized to the entirety of his abdomen patient finally came to the hospital and was evaluated patient was found to have ac appendicitis and surgery took him to the operating room patient s/p day 3 today has started spiking fever and his wbc has increased currently patient is c/o of diffuse pain more in the rlq - History Source History Provided By: Patient, Medical Record Limitations to Obtaining History: No Limitations - Alcohol/Substance Use Hx Alcohol Use: No - Smoking History Smoking history: Never smoked Home Medications - Allergies Allergies/Adverse Reactions: Allergies Allergy/AdvReac Type Severity Reaction Status Date / Time No Known Allergies Allergy Verified 05/09/19 18:13 - Home Medications Home Medications: Ambulatory Orders Ibuprofen [Ibu] 600 mg PO Q6H PRN #20 tablet 05/11/19 Review of Systems - Review of Systems Constitutional: reports: Fever Eyes: reports: No Symptoms HENT: reports: No Symptoms Neck: reports: No Symptoms Cardiovascular: reports: No Symptoms Respiratory: reports: No Symptoms Gastrointestinal: reports: Abdominal Pain Musculoskeletal: reports: No Symptoms Integumentary: reports: No Symptoms Neurological: reports: No Symptoms Endocrine: reports: No Symptoms Hematology/Lymphatic: reports: No Symptoms Psychiatric: reports: No Symptoms Physical Exam Vital Signs: Vital Signs Temperature 99.1 F 05/12/19 06:56 Pulse Rate 93 H 05/12/19 06:56 Respiratory Rate 20 05/12/19 06:56 Blood Pressure 96/65 05/12/19 06:56 O2 Sat by Pulse Oximetry (%) 94 L 05/11/19 21:00 Constitutional: Yes: Well Nourished, Moderate Distress HENT: Yes: Atraumatic, Normocephalic Neck: Yes: Supple, Trachea Midline Cardiovascular: Yes: Regular Rate and Rhythm Respiratory: Yes: Regular, CTA Bilaterally Gastrointestinal: Yes: Tenderness (diffuse), Other (absent bowel sounds) Musculoskeletal: Yes: WNL Extremities: Yes: WNL Neurological: Yes: Alert, Oriented Psychiatric: Yes: Alert, Oriented Labs: CBC, BMP 05/12/19 06:00 05/12/19 06:00 Imaging - Results Chest X-ray: Report Reviewed, Image Reviewed Cat Scan: Report Reviewed, Image Reviewed Assessment/Plan This is a 48 y/o M with no PMH who presented with ruq abdominal pain that generalized to his entire abdomen patient is post op day 3 with increasing wbc and fever. patients abd is still very tender i am worried i am going to start patient on zosyn very close watch on the patient consider keeping him npo iv fluids CAt scan with contrast once we have all that final plan
[2019-05-12] MEDS ORDERED: PIPERACILLIN/TAZOBACTAM 4.5 GM VIAL IVPB ONE ×2 (09:25→17:13)
[2019-05-12] MEDS ORDERED: DEXTROSE 5%-WATER 100 ML IVPB ONE ×2 (09:25→17:14)
[2019-05-12] MEDS ORDERED: PT OWN MED DRAWER 7, Y5N ONE (09:25)
[2019-05-12] MEDS: PIPERACILLIN/TAZOB 4.5 GM 4.5 GM in DEXTROSE 5%-WATER 100 ML IVPB SCH ×2 (09:30→17:14)
[2019-05-12] MEDS: ENOXAPARIN NA (PORCINE) 40 MG/0.4 ML DISP.SYRIN SQ SCH (09:33)
--- NOTE | 2019-05-12 14:17 | PN ---
Teaching Attending Note Name of Resident: Krys Conley ATTENDING PHYSICIAN STATEMENT I saw and evaluated the patient. I reviewed the resident's note and discussed the case with the resident. I agree with the resident's findings and plan as documented. SUBJECTIVE: No fever or chills. has abd pain in R sided abd. hard to move around. No N/V. OBJECTIVE: NAD , looks uncomfortable CV: RRR Lungs: CTAB Ext : No edema Abd: mild rigidity, generalized tenderness especially RLQ and RUQ. No rebound tenderness . hypoactive BS. slightly distended ASSESSMENT AND PLAN: 48 y/o man with no PMH who presented with abd pain and was found to have acute appendicitis 1- Acute appendicitis: s/p appendectomy - Cont to have fever . Abd exam concerning for peritonitis - cxray with atelectasis , neg UA - send blood cx - d/W Dr. Byrnes, CT ordered. will d/w radiologist - Make NPO for now - IVF - pain control
--- NOTE | 2019-05-12 19:11 | PN ---
Physical Exam: SUBJECTIVE: Patient seen and examined at bedside. Pt given tylenol for his fever last night. OBJECTIVE: Vital Signs Period Temp Pulse Resp BP Sys/Rivera Pulse Ox Last 24 Hr 98.6 F-102.5 F 93-115 18-20 96-109/60-68 94 GENERAL: The patient is awake, alert, and fully oriented, in no acute distress. HEAD: Normal with no signs of trauma. NECK: Trachea midline, full range of motion, supple. LUNGS: Breath sounds equal, clear to auscultation bilaterally, no wheezes, no crackles, no accessory muscle use. HEART: Regular rate and rhythm, S1, S2 without murmur, rub or gallop. ABDOMEN: distended, tender in right upper abdomen, rigid, hypoactive BS EXTREMITIES: 2+ pulses, warm, well-perfused, no edema. NEUROLOGICAL: Cranial nerves II through XII grossly intact. Normal speech, gait not observed. PSYCH: Normal mood, normal affect. SKIN: Warm, dry, no rashes or lesions noted Laboratory Results - last 24 hr 05/12/19 05/12/19 06:00 06:00 WBC 15.0 H RBC 3.98 L Hgb 12.6 Hct 36.7 MCV 92.3 MCH 31.6 MCHC 34.3 RDW 12.8 Plt Count 282 MPV 7.5 Absolute Neuts (auto) 12.8 H Neutrophils % 85.3 H Lymphocytes % 6.8 L D Monocytes % 6.5 Eosinophils % 0.9 Basophils % 0.5 Nucleated RBC % 0 Sodium 139 Potassium 3.8 Chloride 104 Carbon Dioxide 28 Anion Gap 6 L BUN 7.1 Creatinine 0.7 Est GFR (CKD-EPI)AfAm 131.17 Est GFR (CKD-EPI)NonAf 113.17 Random Glucose 107 H Calcium 8.0 L Total Bilirubin 0.5 AST 23 ALT 34 Alkaline Phosphatase 52 Total Protein 5.1 L Albumin 2.2 L Active Medications Generic Name Dose Route Start Last Admin Trade Name Freq PRN Reason Stop Dose Admin Acetaminophen 650 mg 05/10/19 21:30 05/12/19 17:12 Tylenol - PO 650 mg Q4H PRN Administration PAIN OR FEVER Enoxaparin Sodium 40 mg 05/12/19 10:00 05/12/19 09:33 Lovenox - SQ 40 mg DAILY ELIESER Administration Piperacillin Sod/Tazobactam 100 mls @ 200 mls/hr 05/12/19 10:00 05/12/19 17: 14 Sod 4.5 gm/ Dextrose IVPB 200 mls/hr Q8H-IV ELIESER Administration Protocol Ondansetron HCl 4 mg 05/10/19 16:15 Zofran Injection IVPUSH Q6H PRN NAUSEA AND/OR VOMITING Oxycodone HCl 5 mg 05/10/19 15:42 05/12/19 13:42 Roxicodone - PO 5 mg Q6H PRN Administration PAIN LEVEL 1-5 ASSESSMENT/PLAN: 48 y/o man with no PMH who presented with abd pain and was found to have acute appendicitis. Images: CT abd pelvis: Development of an approximately 10 x 7 x 2.4 cm oblong-shaped abscess is seen within the right paracolic space. This abscess cavity contains a small amount of air/gas as well as a 1 cm calcified appendicolith. The abscess cavity extends partially into the hepatorenal fossa and abuts the posterior border of the gallbladder fossa. Development of a small amount of pericholecystic fluid is seen. Correlate clinically in regards to possibility of coexisting acute cholecystitis. A small amount of pelvic free intraperitoneal fluid is visualized. A subtle nonspecific 0.9 x 0.4 cm right hepatic lobe hypodense focus is noted medially. Correlate with contrast- enhanced multiphase MRI when the patient's clinical condition permits. Heterogeneous hepatic contrast enhancement is noted possibly due to focal fatty infiltration and/ or hyperemia. Follow-up MRI is also suggested in this regard. The partially imaged lower chest demonstrates development of small bilateral pleural effusions with associated posterior bibasilar compressive atelectasis #Acute appendicitis: - s/p appendectomy - Continuing to have fever, - potential for atelectasis - not tolerating incentive иван well - Abd exam concerning for peritonitis - cxray with atelectasis - negaive UA - following blood cx's - d/W Dr. Talavera- CT results above, on zosyn - NPO for now - pain control with oxycodone - zofran for nausea - endorsed faltulence but no BM's yet. Visit type - Emergency Visit Emergency Visit: No - New Patient This patient is new to me today: No - Critical Care Critical Care patient: No - Discharge Referral Referred to [facility] Med P.C.: No ATTENDING PHYSICIAN STATEMENT I saw and evaluated the patient. I reviewed the resident's note and discussed the case with the resident. I agree with the resident's findings and plan as documented. SUBJECTIVE: OBJECTIVE: ASSESSMENT AND PLAN:
[2019-05-13] MEDS ORDERED: DEXTROSE 5%-WATER 100 ML IVPB ONE ×3 (01:48→16:40)
[2019-05-13] MEDS ORDERED: PIPERACILLIN/TAZOBACTAM 4.5 GM VIAL IVPB ONE ×3 (01:48→16:40)
[2019-05-13] MEDS: PIPERACILLIN/TAZOB 4.5 GM 4.5 GM in DEXTROSE 5%-WATER 100 ML IVPB SCH ×3 (02:10→17:20)
[2019-05-13] MEDS: oxyCODONE HCL 5 MG TABLET PO PRN ×2 (06:49→16:46)
[2019-05-13 07:01] LABS: BASO % 0.3 % (0-2.0); EOS % 2.8 % (0-4.5); HEMATOCRIT 36.2 % (35.4-49); HEMOGLOBIN 12.3 GM/dL (11.7-16.9); LYMPH % 8.7 % (8-40); MCH 31.1 pg (25.7-33.7); MEAN CELL VOLUME 91.5 fl (80-96); MEAN PLT VOLUME 7.4 fl (7.5-11.1); MONO % 7.5 % (3.8-10.2); NEUT % 80.7 % (42.8-82.8); PLATELET COUNT 314 K/MM3 (134-434); RBC 3.95 M/mm3 (4.00-5.60); RDW 12.8 % (11.9-15.9); WHITE BLOOD COUNT 13.4 K/mm3 (4.0-10.0)
[2019-05-13 07:30] LABS: BILIRUBIN,TOTAL 0.4 mg/dL (0.2-1); BLOOD UREA NITROGEN 10.2 mg/dL (7-18); CREATININE 0.8 mg/dL (0.55-1.3); POTASSIUM 3.9 mmol/L (3.5-5.1); TOT PROT 5.1 g/dl (6.4-8.2)
[2019-05-13] MEDS: ENOXAPARIN NA (PORCINE) 40 MG/0.4 ML DISP.SYRIN SQ SCH (10:07)
--- NOTE | 2019-05-13 10:29 | SPA.POSTOP ---
- POST-OP NOTE POD #2 s/p lap appy with IR drainage of collection Pt states that hehad a temp overnight but feels better. Passing flatus. No BM Last Vital Signs Temp Pulse Resp BP Pulse Ox 98.1 F 99 H 20 121/68 94 L 05/13/19 07:00 05/13/19 07:00 05/13/19 07:00 05/13/19 07:00 05/11/19 21:00 Vital Signs Period Temp Pulse Resp BP Sys/Rivera Pulse Ox Last 24 Hr 98.1 F-102.5 F 80-115 15-25 97-121/62-79 Drain 70 ml: light colored drainage/somewhat cloudy Physical Exam General: No acute distress. Abd: Soft. Inc tenderness. No distention. Inc c/d/i. LE: Soft, non-tender bilat. SCD's bilat. CBC, BMP 05/13/19 06:33 05/13/19 06:33 Microbiology 05/12/19 08:00 Urine - Urine Clean Catch Urine Culture - Final NO GROWTH OBTAINED 05/12/19 08:55 Blood - Peripheral Venous Blood Culture - Preliminary NO GROWTH OBTAINED AFTER 24 HOURS, INCUBATION TO CONTINUE FOR 4 DAYS. 05/12/19 08:40 Blood - Peripheral Venous Blood Culture - Preliminary NO GROWTH OBTAINED AFTER 24 HOURS, INCUBATION TO CONTINUE FOR 4 DAYS. A/p: 48 yo male s/p lap appy with IR drain placed Begin clears this am Continue IV abx Oal pain medications as needed D/w Dr. Manley
--- NOTE | 2019-05-13 12:08 | PN ---
Progress Note (short form) - Note Progress Note: Attending Surgeon POD #3 Seen and evaluated concur w/ a/p as outlined by ROSHAN Worley; had IRD yesterday; continue as per orders. Milton Manley MD FACS
--- NOTE | 2019-05-13 12:37 | PN ---
Progress Note, Physician History of Present Illness: patient stable no new issues feels much better ir drain placed in the collection - Current Medication List Current Medications: Active Medications Acetaminophen (Tylenol -) 650 mg PO Q4H PRN PRN Reason: PAIN OR FEVER Last Admin: 05/12/19 17:12 Dose: 650 mg Enoxaparin Sodium (Lovenox -) 40 mg SQ DAILY ELIESER Last Admin: 05/13/19 10:07 Dose: 40 mg Piperacillin Sod/Tazobactam (Sod 4.5 gm/ Dextrose) 100 mls @ 200 mls/hr IVPB Q8H-IV ELIESER; Protocol Last Admin: 05/13/19 10:06 Dose: 200 mls/hr Ondansetron HCl (Zofran Injection) 4 mg IVPUSH Q6H PRN PRN Reason: NAUSEA AND/OR VOMITING Oxycodone HCl (Roxicodone -) 5 mg PO Q6H PRN PRN Reason: PAIN LEVEL 1-5 Last Admin: 05/13/19 06:49 Dose: 5 mg - Objective Vital Signs: Vital Signs Temperature 98.1 F 05/13/19 07:00 Pulse Rate 99 H 05/13/19 07:00 Respiratory Rate 20 05/13/19 07:00 Blood Pressure 121/68 05/13/19 07:00 O2 Sat by Pulse Oximetry (%) 94 L 05/11/19 21:00 Constitutional: Yes: No Distress, Calm Cardiovascular: Yes: Regular Rate and Rhythm Respiratory: Yes: Regular, CTA Bilaterally Gastrointestinal: Yes: Soft, Hypoactive Bowel Sounds Musculoskeletal: Yes: WNL Extremities: Yes: WNL Neurological: Yes: Alert, Oriented Psychiatric: Yes: Alert, Oriented Labs: CBC, BMP 05/13/19 06:33 05/13/19 06:33 INR, PTT INR 1.21 (0.83-1.09) H 05/10/19 07:00 Assessment/Plan continue current mgmt see if the fluid cx is send monitor wbc rest as per the team appendicitis abd abscess leukocytosis peritonitis
[2019-05-13] MEDS ORDERED: diphenhydrAMINE HCL 25 MG CAPSULE (FP) PO ONE (13:35)
--- NOTE | 2019-05-13 14:41 | PN ---
Teaching Attending Note Name of Resident: Krys Conley ATTENDING PHYSICIAN STATEMENT I saw and evaluated the patient. I reviewed the resident's note and discussed the case with the resident. I agree with the resident's findings and plan as documented. SUBJECTIVE: No fever or chills. NO MCKEON , no N/V. feels much better . abd pain is better . no BM yet. no SOB OBJECTIVE: NAD , looks uncomfortable CV: RRR Lungs: CTAB Ext : No edema Abd: NL BS, less distended today and soft. TTP in RLQ. no rigidity , no rebound tenderness ASSESSMENT AND PLAN: 48 y/o man with no PMH who presented with abd pain and was found to have acute appendicitis 1- Acute appendicitis: s/p appendectomy 2- abd abscess , s/p IR drainage and ANGELO placement 3- peritonitis plan: - cont abx - blood cx neg to date - follow fluid cx - d/w Dr. Talavera - clear liquids - pain control - Lovenox
--- NOTE | 2019-05-13 18:16 | PN ---
Physical Exam: SUBJECTIVE: Patient seen and examined at the bedside. Pt had IR drainage of pericolic collection, pt has been afebrile except for 100.1 temp overnight. OBJECTIVE: Vital Signs Period Temp Pulse Resp BP Sys/Rivera Pulse Ox Last 24 Hr 98.1 F-99.9 F 80-110 15-25 97-121/58-79 GENERAL: The patient is awake, alert, and fully oriented, in no acute distress. HEAD: Normal with no signs of trauma. NECK: supple. LUNGS: Breath sounds equal, clear to auscultation bilaterally, no wheezes, no crackles, no accessory muscle use. improved with the incentive spirometer today. HEART: Regular rate and rhythm, S1, S2 without murmur, rub or gallop. ABDOMEN: Less rigid, nontympanitic, still some minor pain in Rt upper abdmoen, ANGELO tube draining serosanguinous fluid. EXTREMITIES: 2+ pulses, warm, well-perfused, no edema. NEUROLOGICAL: Cranial nerves II through XII grossly intact. Normal speech, gait not observed. PSYCH: Normal mood, normal affect. SKIN: Warm, dry, urticarial rash noted later in afternoon on right lower back, pruritic and on rt side of belly. Laboratory Results - last 24 hr 05/13/19 05/13/19 06:33 06:33 WBC 13.4 H RBC 3.95 L Hgb 12.3 Hct 36.2 MCV 91.5 MCH 31.1 MCHC 34.0 RDW 12.8 Plt Count 314 MPV 7.4 L Absolute Neuts (auto) 10.8 H Neutrophils % 80.7 Lymphocytes % 8.7 D Monocytes % 7.5 Eosinophils % 2.8 D Basophils % 0.3 Nucleated RBC % 0 Sodium 138 Potassium 3.9 Chloride 103 Carbon Dioxide 28 Anion Gap 6 L BUN 10.2 Creatinine 0.8 Est GFR (CKD-EPI)AfAm 124.16 Est GFR (CKD-EPI)NonAf 107.13 Random Glucose 97 Calcium 8.0 L Total Bilirubin 0.4 AST 14 L ALT 27 Alkaline Phosphatase 55 Total Protein 5.1 L Albumin 2.0 L Active Medications Generic Name Dose Route Start Last Admin Trade Name Freq PRN Reason Stop Dose Admin Acetaminophen 650 mg 05/10/19 21:30 05/12/19 17:12 Tylenol - PO 650 mg Q4H PRN Administration PAIN OR FEVER Enoxaparin Sodium 40 mg 05/12/19 10:00 05/13/19 10:07 Lovenox - SQ 40 mg DAILY ELIESER Administration Cefepime HCl 2 gm in 50 mls @ 100 mls/hr 05/13/19 22:00 Maxipime 2gm Ivpb (Premix) IVPB BID [facility] Protocol Ondansetron HCl 4 mg 05/10/19 16:15 Zofran Injection IVPUSH Q6H PRN NAUSEA AND/OR VOMITING Oxycodone HCl 5 mg 05/10/19 15:42 05/13/19 16:46 Roxicodone - PO 5 mg Q6H PRN Administration PAIN LEVEL 1-5 ASSESSMENT/PLAN: 48 y/o man with no PMH who presented with abd pain and was found to have acute appendicitis. #Acute appendicitis: - s/p appendectomy - afebrile - doubt atelectasis lungs sound clear, tolerating incentive иван. #Pericolic abscess - post IR drainage abdominal exam improved, not tympanitic, less rigid, less pain on palpation of right side. - ANGELO tube draining serosanguinous fluid. - fluid collection cx's gram stain showing gram positive cocci, gram negative and gram positive bacilli with few PMN's. Cx pending. - d/W Dr. Talavera- stop zosyn due to urticarial rxn, improved since given benadryl. starting cefepime 2g BID instead, will continue to monitor for any rashes. - started on clear liquid diet - pain control with oxycodone - zofran for nausea FEN: No fluids indicated, pt drinking water. monitor lytes, on clear liquid diet. DVT PPX: Lovenox 40mg SQ. Visit type - Emergency Visit Emergency Visit: No - New Patient This patient is new to me today: No - Critical Care Critical Care patient: No - Discharge Referral Referred to [facility] Med [facility].C[facility] No ATTENDING PHYSICIAN STATEMENT I saw and evaluated the patient. I reviewed the resident's note and discussed the case with the resident. I agree with the resident's findings and plan as documented. SUBJECTIVE: OBJECTIVE: ASSESSMENT AND PLAN:
[2019-05-13] MEDS: CEFEPIME 2 GM in DEXTROSE 5%-WATER - 100 ML IVPB SCH (21:43)
[2019-05-13] MEDS: ACETAMINOPHEN 325 MG TABLET (FP) PO PRN (21:57)
[2019-05-14] MEDS: oxyCODONE HCL 5 MG TABLET PO PRN ×3 (02:31→17:11)
[2019-05-14 07:56] LABS: BASO % 0.4 % (0-2.0); EOS % 4.7 % (0-4.5); HEMATOCRIT 36.5 % (35.4-49); HEMOGLOBIN 12.6 GM/dL (11.7-16.9); LYMPH % 12.8 % (8-40); MCH 31.8 pg (25.7-33.7); MCHC 34.5 g/dl (32.0-35.9); MEAN CELL VOLUME 92.2 fl (80-96); MEAN PLT VOLUME 7.4 fl (7.5-11.1); MONO % 9.3 % (3.8-10.2); NEUT % 72.8 % (42.8-82.8); PLATELET COUNT 388 K/MM3 (134-434); RBC 3.96 M/mm3 (4.00-5.60); RDW 12.7 % (11.9-15.9); WHITE BLOOD COUNT 9.1 K/mm3 (4.0-10.0)
[2019-05-14] MEDS ORDERED: PT OWN MED DRAWER 7, Y5N ONE (09:32)
[2019-05-14] MEDS: ENOXAPARIN NA (PORCINE) 40 MG/0.4 ML DISP.SYRIN SQ SCH (09:34)
[2019-05-14] MEDS: CEFEPIME 2 GM in DEXTROSE 5%-WATER - 100 ML IVPB SCH (09:35)
--- NOTE | 2019-05-14 10:06 | PN ---
Progress Note, Physician History of Present Illness: patient stable no new issues has developed blebs at the dressing site - Current Medication List Current Medications: Active Medications Acetaminophen (Tylenol -) 650 mg PO Q4H PRN PRN Reason: PAIN OR FEVER Last Admin: 05/13/19 21:57 Dose: 650 mg Enoxaparin Sodium (Lovenox -) 40 mg SQ DAILY ELIESER Last Admin: 05/14/19 09:34 Dose: 40 mg Cefepime HCl 2 gm/ Dextrose 100 mls @ 200 mls/hr IVPB BID ELIESER; Protocol Cefepime HCl (Maxipime 1 Gm Premix Ivpb) 1 gm in 50 mls @ 100 mls/hr IVPB Q8H- IV ELIESER; Protocol Ondansetron HCl (Zofran Injection) 4 mg IVPUSH Q6H PRN PRN Reason: NAUSEA AND/OR VOMITING Oxycodone HCl (Roxicodone -) 5 mg PO Q6H PRN PRN Reason: PAIN LEVEL 1-5 Last Admin: 05/14/19 02:31 Dose: 5 mg - Objective Vital Signs: Vital Signs Temperature 99.2 F 05/14/19 07:08 Pulse Rate 77 05/14/19 07:08 Respiratory Rate 20 05/14/19 07:08 Blood Pressure 106/47 L 05/14/19 07:08 O2 Sat by Pulse Oximetry (%) 96 05/13/19 21:00 Constitutional: Yes: No Distress, Calm Cardiovascular: Yes: Regular Rate and Rhythm Respiratory: Yes: Regular, CTA Bilaterally Gastrointestinal: Yes: Normal Bowel Sounds, Soft, Other (drain in place) Musculoskeletal: Yes: WNL Extremities: Yes: WNL Neurological: Yes: Alert, Oriented Psychiatric: Yes: Alert, Oriented Labs: CBC, BMP 05/14/19 06:40 05/13/19 06:33 INR, PTT INR 1.21 (0.83-1.09) H 05/10/19 07:00 Assessment/Plan continue current mgmt see if the fluid cx is send monitor wbc rest as per the team appendicitis abd abscess leukocytosis peritonitis
--- NOTE | 2019-05-14 10:39 | PN ---
Progress Note (short form) - Note Progress Note: Attending Surgeon POD#4 Minimal c/o RLQ pain; tolerating diet and voiding and moving his bowels VSS AF [id number] in RLQ and tenderness there; drain serous; port sites c/d/i ; o/ w negative. WBC-nl Cultures noted Drain 40 cc/24 hours IMP:improved PLAN: Advance diet and continue present tx. Milton Manley MD FACS
--- NOTE | 2019-05-14 14:50 | PN ---
Progress Note (short form) - Note Progress Note: Subjective: abd pain is better Objective: Vital Signs: Last Vital Signs Temp Pulse Resp BP Pulse Ox 99.7 F H 91 H 20 112/68 96 05/14/19 09:00 05/14/19 09:00 05/14/19 10:00 05/14/19 09:00 05/14/19 10:00 Laboratory Results - last 24 hr 05/14/19 06:40 WBC 9.1 RBC 3.96 L Hgb 12.6 Hct 36.5 MCV 92.2 MCH 31.8 MCHC 34.5 RDW 12.7 Plt Count 388 D MPV 7.4 L Absolute Neuts (auto) 6.6 Neutrophils % 72.8 Lymphocytes % 12.8 D Monocytes % 9.3 Eosinophils % 4.7 H Basophils % 0.4 Nucleated RBC % 0 Physical Exam: NAD CV: RRR Lungs: CTAB Ext : No edema Abd: NL BS, Nd, soft . TTP in RLQ. no rigidity , no rebound tenderness . ANGELO in . vesicles around tape on right flank ASSESSMENT AND PLAN: 48 y/o man with no PMH who presented with abd pain and was found to have acute appendicitis 1- Acute appendicitis: s/p appendectomy 2- abd abscess , s/p IR drainage and ANGELO placement 3- peritonitis 4- contact dermatitis to tape plan: - Abx switched to cefepime - blood cx neg to date - fluid cx noted, follow final - d/w Dr. Talavera - regular diet - pain control - Lovenox Visit type - Emergency Visit Emergency Visit: Yes ED Registration Date: 05/09/19 Care time: The patient presented to the Emergency Department on the above date and was hospitalized for further evaluation of their emergent condition. - New Patient This patient is new to me today: No - Critical Care Critical Care patient: No
[2019-05-14] MEDS ORDERED: DEXTROSE 5%-WATER 100 ML IVPB ONE (17:08)
[2019-05-14] MEDS ORDERED: CEFEPIME HCL 1 GM VIAL (RESTRICTED TO ID) ONE (17:08)
[2019-05-14] MEDS: CEFEPIME 1 GM in DEXTROSE 5%-WATER 100 ML IVPB SCH (17:10)
[2019-05-14] MEDS ORDERED: CEFEPIME 2 GM in DEXTROSE 5%-WATER - 100 ML IVPB SCH (22:00)
[2019-05-15] MEDS ORDERED: DEXTROSE 5%-WATER 100 ML IVPB ONE ×3 (01:12→18:49)
[2019-05-15] MEDS ORDERED: CEFEPIME HCL 1 GM VIAL (RESTRICTED TO ID) ONE ×3 (01:12→18:48)
[2019-05-15] MEDS: CEFEPIME 1 GM in DEXTROSE 5%-WATER 100 ML IVPB SCH ×3 (01:57→18:50)
[2019-05-15] MEDS: ACETAMINOPHEN 325 MG TABLET (FP) PO PRN ×2 (06:01→13:49)
[2019-05-15] MEDS: oxyCODONE HCL 5 MG TABLET PO PRN ×3 (06:01→21:16)
--- NOTE | 2019-05-15 08:22 | PN ---
Progress Note (short form) - Note Progress Note: POD 5, s/p Laparoscopic appendectomy c/b intra-abdominal abscess now POD 3 s/p IR guided catheter insertion Pt seen and examined. Reports his pain is improved from last night. Tolerating clears, no n/v. No BMs, passing flatus. Has been oob in the pereyra. Denies cp/sob , n/v/d, calf pain. Vital Signs Temp 98.3 F 05/15/19 06:00 Pulse 82 05/15/19 06:00 Resp 20 05/15/19 06:00 BP 114/82 05/15/19 06:00 Pulse Ox 96 05/14/19 21:00 Intake & Output 05/14/19 05/14/19 05/15/19 11:59 23:59 11:59 Intake Total 300 Output Total 2 2 Balance -2 298 Intake: IVPB 200 Oral 100 Output: Drainage 2 2 Right Posterior Back 2 2 Other: Voiding Method Toilet Toilet # Unmeasured Voids Void 1 1 1 Bowel Movement No No CBC, BMP 05/14/19 06:40 05/13/19 06:33 Gen: awake, alert, nad Resp: Unlabored on RA Abdo: Soft, minimal ttp rlq, +bowel sounds. ANGELO in place with scant serous drainage in reservoir. Dressing intact with bullae at lateral aspect. Tegaderm removed, 4x4 and paper tape applied. A/P: 48 y/o M w/ no PMHx a/w rlq pain, found to have acute appendicitis, now POD 5, s/p Laparoscopic appendectomy c/b intra-abdominal abscess now POD 3 s/p IR guided catheter insertion. Febrile yesterday to 100.2F, tachy to mid teens Leukocytosis resolved yesterday. Angelo output 2ml overnight -Reg diet -OOB as tolerated -Continue to monitor drain output -Abx per ID -Monitor VS per protocol -Monitor I&Os -Will repeat scan tomorrow d/w attending Dr Manley
--- NOTE | 2019-05-15 08:56 | PN ---
Progress Note, Physician History of Present Illness: patient stable no new issues - Current Medication List Current Medications: Active Medications Acetaminophen (Tylenol -) 650 mg PO Q4H PRN PRN Reason: PAIN OR FEVER Last Admin: 05/15/19 06:01 Dose: 650 mg Enoxaparin Sodium (Lovenox -) 40 mg SQ DAILY ELIESER Last Admin: 05/14/19 09:34 Dose: 40 mg Cefepime HCl 1 gm/ Dextrose 100 mls @ 200 mls/hr IVPB Q8H-IV ELIESER; Protocol Last Admin: 05/15/19 01:57 Dose: 200 mls/hr Ondansetron HCl (Zofran Injection) 4 mg IVPUSH Q6H PRN PRN Reason: NAUSEA AND/OR VOMITING Oxycodone HCl (Roxicodone -) 5 mg PO Q6H PRN PRN Reason: PAIN LEVEL 1-5 Last Admin: 05/15/19 06:01 Dose: 5 mg - Objective Vital Signs: Vital Signs Temperature 98.3 F 05/15/19 06:00 Pulse Rate 82 05/15/19 06:00 Respiratory Rate 20 05/15/19 06:00 Blood Pressure 114/82 05/15/19 06:00 O2 Sat by Pulse Oximetry (%) 96 05/14/19 21:00 Constitutional: Yes: No Distress, Calm Respiratory: Yes: Regular, CTA Bilaterally Gastrointestinal: Yes: Normal Bowel Sounds, Soft, Other (drain in place) Musculoskeletal: Yes: WNL Extremities: Yes: WNL Neurological: Yes: Alert, Oriented Psychiatric: Yes: Alert, Oriented Labs: CBC, BMP 05/14/19 06:40 05/13/19 06:33 INR, PTT INR 1.21 (0.83-1.09) H 05/10/19 07:00 Assessment/Plan continue current mgmt see if the fluid cx is send monitor wbc rest as per the team appendicitis abd abscess leukocytosis peritonitis plan continue current mgmt awaiting for the organisms
[2019-05-15 11:15] LABS: HEMATOCRIT 42.8 % (35.4-49); HEMOGLOBIN 14.5 GM/dL (11.7-16.9); MCH 31.3 pg (25.7-33.7); MCHC 33.9 g/dl (32.0-35.9); MEAN CELL VOLUME 92.2 fl (80-96); MEAN PLT VOLUME 7.1 fl (7.5-11.1); PLATELET COUNT 470 K/MM3 (134-434); RBC 4.64 M/mm3 (4.00-5.60); RDW 12.8 % (11.9-15.9)
[2019-05-15] MEDS: ENOXAPARIN NA (PORCINE) 40 MG/0.4 ML DISP.SYRIN SQ SCH (11:19)
--- NOTE | 2019-05-15 15:53 | PN ---
Teaching Attending Note Name of Resident: Narendra Montano ATTENDING PHYSICIAN STATEMENT I saw and evaluated the patient. I reviewed the resident's note and discussed the case with the resident. I agree with the resident's findings and plan as documented. SUBJECTIVE: No fever or chills. Abd pain is better . no N/V . OBJECTIVE: NAD CV: RRR Lungs: CTAB Ext : No edema Abd: NL BS, Nd, soft . TTP in RLQ. no rigidity , no rebound tenderness . ANGELO in . vesicles around tape on right flank ASSESSMENT AND PLAN: 48 y/o man with no PMH who presented with abd pain and was found to have acute appendicitis 1- Acute appendicitis: s/p appendectomy 2- abd abscess , s/p IR drainage and ANGELO placement 3- peritonitis 4- contact dermatitis to tape plan: - cont cefepime - CT scan tomorrow - blood cx neg to date x 72 hrs - fluid cx revieweed. will follow final results - d/w Dr. Talavera today - regular diet - pain control - Lovenox
[2019-05-15] MEDS ORDERED: oxyCODONE HCL 5 MG TABLET PO ONE (16:00)
[2019-05-15] MEDS ORDERED: ACETAMINOPHEN 325 MG TABLET (FP) PO ONE (16:00)
--- NOTE | 2019-05-15 17:41 | PN ---
Physical Exam: SUBJECTIVE: Patient seen and examined at the bedside. Not in any distress. Was in pain around ANGELO drain so percocet given. OBJECTIVE: Vital Signs Period Temp Pulse Resp BP Sys/Rivera Pulse Ox Last 24 Hr 98.3 F-99.7 F 82-117 18-20 107-120/60-82 96 GENERAL: The patient is awake, alert, and fully oriented, in no acute distress. HEAD: Normal with no signs of trauma. NECK: supple. LUNGS: Breath sounds equal, clear to auscultation bilaterally, no wheezes, no crackles, no accessory muscle use. HEART: Regular rate and rhythm, S1, S2 without murmur, rub or gallop. ABDOMEN: Soft, nontender, nondistended,slightly tympanitic in upper epigastrium , ANGELO drain intact slight tenderness around site, bullae around tape of ANGELO drain. EXTREMITIES: 2+ pulses, warm, well-perfused, no edema. NEUROLOGICAL: Cranial nerves II through XII grossly intact. Normal speech, gait not observed. PSYCH: Normal mood, normal affect. SKIN: Warm, dry, bullae around ANGELO tube. Laboratory Results - last 24 hr 05/15/19 10:48 WBC 9.0 RBC 4.64 Hgb 14.5 Hct 42.8 D MCV 92.2 MCH 31.3 MCHC 33.9 RDW 12.8 Plt Count 470 H D MPV 7.1 L Active Medications Generic Name Dose Route Start Last Admin Trade Name Freq PRN Reason Stop Dose Admin Acetaminophen 650 mg 05/10/19 21:30 05/15/19 13:49 Tylenol - PO 650 mg Q4H PRN Administration PAIN OR FEVER Bacitracin 1 applic 05/16/19 10:00 Bacitracin - TP DAILY ELIESER Enoxaparin Sodium 40 mg 05/12/19 10:00 05/15/19 11:19 Lovenox - SQ 40 mg DAILY ELIESER Administration Cefepime HCl 1 gm/ Dextrose 100 mls @ 200 mls/hr 05/14/19 18:00 05/15/19 11: 19 IVPB 200 mls/hr Q8H-IV ELIESER Administration Protocol Ondansetron HCl 4 mg 05/10/19 16:15 Zofran Injection IVPUSH Q6H PRN NAUSEA AND/OR VOMITING ASSESSMENT/PLAN: 48 y/o man with no PMH who presented with abd pain and was found to have acute appendicitis. #Pericolic abscess - post IR drainage abdominal exam improved, not tympanitic, less rigid, less pain on palpation of right side. - ANGELO tube draining serosanguinous fluid. - Cx pending. - d/W Dr. Talavera- cefepime 1 g and monitor. - regular diet - pain control with oxycodone - zofran for nausea #bullae around gauze tape - likely 2/2 contact dermatititis - Sx ordered mupirocin on it - will repeat imaging tm FEN: No fluids indicated, pt drinking water. monitor lytes, on regular diet. DVT PPX: Lovenox 40mg SQ. Visit type - Emergency Visit Emergency Visit: No - New Patient This patient is new to me today: No - Critical Care Critical Care patient: No - Discharge Referral Referred to [facility] Med [facility] No ATTENDING PHYSICIAN STATEMENT I saw and evaluated the patient. I reviewed the resident's note and discussed the case with the resident. I agree with the resident's findings and plan as documented. SUBJECTIVE: OBJECTIVE: ASSESSMENT AND PLAN:
[2019-05-16] MEDS ORDERED: CEFEPIME HCL 1 GM VIAL (RESTRICTED TO ID) ONE ×2 (01:20→09:29)
[2019-05-16] MEDS ORDERED: DEXTROSE 5%-WATER 100 ML IVPB ONE ×2 (01:21→09:29)
[2019-05-16] MEDS: CEFEPIME 1 GM in DEXTROSE 5%-WATER 100 ML IVPB SCH ×2 (01:28→09:57)
[2019-05-16] MEDS: oxyCODONE HCL 5 MG TABLET PO PRN (03:13)
[2019-05-16 08:07] LABS: HEMATOCRIT 41.8 % (35.4-49); HEMOGLOBIN 14.1 GM/dL (11.7-16.9); MCH 31.2 pg (25.7-33.7); MCHC 33.8 g/dl (32.0-35.9); MEAN CELL VOLUME 92.2 fl (80-96); MEAN PLT VOLUME 7.2 fl (7.5-11.1); PLATELET COUNT 487 K/MM3 (134-434); RBC 4.53 M/mm3 (4.00-5.60); WHITE BLOOD COUNT 11.8 K/mm3 (4.0-10.0)
--- NOTE | 2019-05-16 08:27 | SPA.POSTOP ---
- POST-OP NOTE POD #6 s/p Laprascopic Appendectomy No acute events since surgical procedure per RN notes. Patient resting comfortably. Pain management via prn meds. IR drain in place and draining well. He is OOB and cont to ambulate unassisted. Voiding spontaneously. Had low grade temp of 99.2F at 6AM this morning. Denies n/v/c, CP or SOB. Last Vital Signs Temp Pulse Resp BP Pulse Ox 99.2 F 102 H 20 101/62 100 05/16/19 06:00 05/16/19 06:00 05/16/19 06:00 05/16/19 06:00 05/15/19 21:00 Microbiology 05/13/19 12:00 Abdomen Gram Stain - Final 05/13/19 12:00 Abdomen Body Fluid Culture - Preliminary Escherichia Coli Lactose Fermenting Neg Bacilli Group D Strep Or Entero Coccus 05/13/19 12:00 Abdomen Anaerobic Culture - Preliminary Pending Organism Pending Organism#2 Physical Exam General: No acute distress. Pulm: CTA bilat Cor: RRR Abd: Soft. All surgical ports c/d/i. ANGELO 60 mL/24hrs (seropurulent) LE: Soft, non-tender bilat. SCD's bilat. Problem List - Problems (1) Appendicitis, acute Assessment/Plan: POD #6 s/p Laprascopic Appendectomy (retrocecal); POD #4 (in IR). Cont OOB and ambulate Incentive spirometer f/u CBC & BMP f/u Repeat ABD/Pelvis CT Monitor & record ANGELO output q shift Diet as tolerated. IV ABX Code(s): K35.80 - UNSPECIFIED ACUTE APPENDICITIS Qualifiers: Acute appendicitis type: unspecified acute appendicitis type Qualified Code (s): K35.80 - Unspecified acute appendicitis Visit type - Case Type Case Type: ED Admission - Emergency Emergency Visit: Yes ED Registration Date: 05/09/19 Care time: The patient presented to the Emergency Department on the above date and was hospitalized for further evaluation of their emergent condition. - New patient This patient is new to me today: Yes Date on this admission: 05/16/19
[2019-05-16] MEDS: ENOXAPARIN NA (PORCINE) 40 MG/0.4 ML DISP.SYRIN SQ SCH (09:57)
[2019-05-16] MEDS: BACITRACIN 15 GM TUBE TOPICAL OINTMENT TP SCH (10:46)
--- NOTE | 2019-05-16 11:06 | PN ---
Progress Note, Physician History of Present Illness: stable cx result noted still very tense abd going for repeat ct scan cx results still pending one org noted - Current Medication List Current Medications: Active Medications Acetaminophen (Tylenol -) 650 mg PO Q4H PRN PRN Reason: PAIN OR FEVER Last Admin: 05/15/19 13:49 Dose: 650 mg Bacitracin (Bacitracin -) 1 applic TP DAILY ELIESER Last Admin: 05/16/19 10:46 Dose: 1 applic Enoxaparin Sodium (Lovenox -) 40 mg SQ DAILY ELIESER Last Admin: 05/16/19 09:57 Dose: 40 mg Piperacillin Sod/Tazobactam (Sod 3.375 gm/ Dextrose) 50 mls @ 100 mls/hr IVPB Q8H-IV ELIESER; Protocol Ondansetron HCl (Zofran Injection) 4 mg IVPUSH Q6H PRN PRN Reason: NAUSEA AND/OR VOMITING Oxycodone HCl (Roxicodone -) 5 mg PO Q6H PRN PRN Reason: PAIN LEVEL 6-10 Last Admin: 05/16/19 03:13 Dose: 5 mg - Objective Vital Signs: Vital Signs Temperature 99.2 F 05/16/19 06:00 Pulse Rate 102 H 05/16/19 06:00 Respiratory Rate 20 05/16/19 06:00 Blood Pressure 101/62 05/16/19 06:00 O2 Sat by Pulse Oximetry (%) 100 05/15/19 21:00 Constitutional: Yes: Calm, Mild Distress Cardiovascular: Yes: S1, S2 Respiratory: Yes: Regular, CTA Bilaterally Gastrointestinal: Yes: Soft, Distention, Hypoactive Bowel Sounds, Other Musculoskeletal: Yes: WNL Extremities: Yes: WNL Neurological: Yes: Alert, Oriented Psychiatric: Yes: Alert, Oriented Labs: CBC, BMP 05/16/19 06:38 05/13/19 06:33 INR, PTT INR 1.21 (0.83-1.09) H 05/10/19 07:00 Assessment/Plan continue current mgmt see if the fluid cx is send monitor wbc rest as per the team appendicitis abd abscess leukocytosis peritonitis plan continue current mgmt awaiting for the organisms will change abx to zosyn await for repeat ct results
[2019-05-16] MEDS ORDERED: PIPERACILLIN/TAZOBACTAM 3.375 GM VIAL IVPB ONE ×2 (11:43→17:11)
[2019-05-16] MEDS ORDERED: DEXTROSE 5%-WATER - 50 ML IVPB ONE ×2 (11:44→17:12)
[2019-05-16] MEDS: PIPERACILLIN/TAZOB 3.375 GM 3.375 GM in DEXTROSE 5%-WATER - 50 ML IVPB SCH ×2 (11:50→17:18)
[2019-05-16] MEDS: ACETAMINOPHEN 325 MG TABLET (FP) PO PRN ×2 (11:50→21:39)
--- NOTE | 2019-05-16 13:20 | PATH ---
Surgical Pathology Report Patient Name: SAHVONNE CORNEJO Med. Rec. #: [id number] /Age/Gender: 1970 (Age: 48) / M Account: [id number] Location: [facility] MED/SURG Taken: 05/10/2019 Received: 05/12/2019 Reported: 05/16/2019 Physicians: Milton Manley MD Specimen(s) Received APPENDIX Clinical History Acute appendicitis Final Diagnosis APPENDIX, APPENDECTOMY: ACUTE APPENDICITIS. Electronically Signed Maggie Brooks M.D. Gross Description Received in formalin, labeled "appendix," is an 8 cm. in length vermiform appendix with a stapled margin of resection and no attached fat. The serosa is peter-patel with adhesions. Sectioning reveals a focally hemorrhagic lumen. The wall of the appendix averages 0.1 cm. in thickness. Logistic Manager sections are submitted in one cassette. /05/12/2019 saudi/05/12/2019
--- NOTE | 2019-05-16 16:28 | PN ---
Teaching Attending Note Name of Resident: Narendra Montano ATTENDING PHYSICIAN STATEMENT I saw and evaluated the patient. I reviewed the resident's note and discussed the case with the resident. I agree with the resident's findings and plan as documented. SUBJECTIVE: Had abd pain , this am , worse than before. cont t have fever OBJECTIVE: NAD CV: RRR Lungs: CTAB Ext : No edema Abd: NL BS, ND, soft. TTP in RLQ. no rigidity, no rebound tenderness . ANGELO in. ASSESSMENT AND PLAN: 48 y/o man with no PMH who presented with abd pain and was found to have acute appendicitis 1- Acute appendicitis: s/p appendectomy 2- abd abscess , s/p IR drainage and ANGELO placement 3- peritonitis 4- contact dermatitis to tape 5- fever plan: - back on zosyn. Monitor for any allergic reactions ( rash on back few days ago ) - CT scan reviewed. will d/w Dr. abdi about the possible need for another ANGELO drain - blood cx neg to date - fluid cx reviewed - d/w Dr. Talavera today - clears - pain control - Lovenox
--- NOTE | 2019-05-16 16:54 | PN ---
Progress Note (short form) - Note Progress Note: Repeat CT scan with residual collection not at the site of the current drain. D/w IR plan for additional drain placement tomorrow, pt scheduled for AM. NPO after midnight. Hold morning dose of Lovenox. d/w attending Dr Manley
--- NOTE | 2019-05-16 17:51 | PN ---
Physical Exam: SUBJECTIVE: Patient seen and examined at bedside. Pt needs IR drainage tm am still febrile. OBJECTIVE: Vital Signs Period Temp Pulse Resp BP Sys/Rivera Pulse Ox Last 24 Hr 99.0 F-100.3 F 74-104 18-20 101-122/61-68 100-100 GENERAL: The patient is awake, alert, and fully oriented, in slight distress. HEAD: Normal with no signs of trauma. NECK: supple. LUNGS: Breath sounds equal, clear to auscultation bilaterally, no wheezes, no crackles, no accessory muscle use. HEART: Regular rate and rhythm, S1, S2 without murmur, rub or gallop. ABDOMEN: slightly rigid abdomen in Right middle epigastrium, slight distention, tympanitic, normoactive bowel sounds, no guarding, ANGELO site draining serosanguinous fluid and bullae still present. EXTREMITIES: 2+ pulses, warm, well-perfused, no edema. NEUROLOGICAL: Cranial nerves II through XII grossly intact. Normal speech, gait not observed. PSYCH: Normal mood, normal affect. SKIN: Warm, dry, no rashes or lesions noted Laboratory Results - last 24 hr 05/16/19 06:38 WBC 11.8 H RBC 4.53 Hgb 14.1 Hct 41.8 MCV 92.2 MCH 31.2 MCHC 33.8 RDW 13.0 Plt Count 487 H MPV 7.2 L Active Medications Generic Name Dose Route Start Last Admin Trade Name Freq PRN Reason Stop Dose Admin Acetaminophen 650 mg 05/10/19 21:30 05/16/19 11:50 Tylenol - PO 650 mg Q4H PRN Administration PAIN OR FEVER Bacitracin 1 applic 05/16/19 10:00 05/16/19 10:46 Bacitracin - TP 1 applic DAILY ELIESER Administration Enoxaparin Sodium 40 mg 05/12/19 10:00 05/16/19 09:57 Lovenox - SQ 40 mg DAILY ELIESER Administration Piperacillin Sod/Tazobactam 50 mls @ 100 mls/hr 05/16/19 12:00 05/16/19 17:18 Sod 3.375 gm/ Dextrose IVPB 100 mls/hr Q8H-IV ELIESER Administration Protocol Ondansetron HCl 4 mg 05/10/19 16:15 Zofran Injection IVPUSH Q6H PRN NAUSEA AND/OR VOMITING Oxycodone HCl 5 mg 05/15/19 17:57 05/16/19 03:13 Roxicodone - PO 5 mg Q6H PRN Administration PAIN LEVEL 6-10 ASSESSMENT/PLAN: CT: Additional inferior collection that may not connect to the area of the drainage catheter. Air and fluid collection within the RLQ at the site of previous appendectomy is reidentified 6.1 X2.7 X 6.4. Atelectatic changes in b/ l bases and small rt pleural effusions (unchanged from prior image). 48 y/o man with no PMH who presented with abd pain and was found to have acute appendicitis. #Pericolic abscess - rigid abdomen, febrile - ANGELO tube draining serosanguinous fluid, IR needs to drain tm am the new collection seen on CT. - Cx pending. - d/W Dr. Talavera- swicthed abx to zosyn and monitor. - pain control with oxycodone - zofran for nausea #bullae around gauze tape - likely 2/2 contact dermatitis - Sx ordered mupirocin on it FEN: No fluids indicated, monitor lytes, npo after midnight. DVT PPX: off lovenox for IR drainage tm Visit type - Emergency Visit Emergency Visit: No - New Patient This patient is new to me today: No - Critical Care Critical Care patient: No - Discharge Referral Referred to [facility] Med [facility] No ATTENDING PHYSICIAN STATEMENT I saw and evaluated the patient. I reviewed the resident's note and discussed the case with the resident. I agree with the resident's findings and plan as documented. SUBJECTIVE: OBJECTIVE: ASSESSMENT AND PLAN:
[2019-05-17] MEDS ORDERED: DEXTROSE 5%-WATER - 50 ML IVPB ONE ×3 (02:20→16:17)
[2019-05-17] MEDS ORDERED: PIPERACILLIN/TAZOBACTAM 3.375 GM VIAL IVPB ONE ×3 (02:20→16:17)
[2019-05-17] MEDS: PIPERACILLIN/TAZOB 3.375 GM 3.375 GM in DEXTROSE 5%-WATER - 50 ML IVPB SCH ×3 (02:29→17:33)
[2019-05-17] MEDS ORDERED: PT OWN MED DRAWER 7, Y5N ONE (07:44)
[2019-05-17 07:45] LABS: BASO % 0.4 % (0-2.0); EOS % 4.5 % (0-4.5); HEMOGLOBIN 13.5 GM/dL (11.7-16.9); LYMPH % 8.3 % (8-40); MCH 31.1 pg (25.7-33.7); MCHC 33.9 g/dl (32.0-35.9); MEAN CELL VOLUME 91.8 fl (80-96); MEAN PLT VOLUME 7.3 fl (7.5-11.1); MONO % 6.6 % (3.8-10.2); NEUT % 80.2 % (42.8-82.8); PLATELET COUNT 466 K/MM3 (134-434); RBC 4.36 M/mm3 (4.00-5.60); RDW 12.8 % (11.9-15.9)
--- NOTE | 2019-05-17 07:53 | SPA.POSTOP ---
- POST-OP NOTE POD #7 s/p Laprascopic Appendectomy No acute events since surgical procedure per RN notes. Patient resting comfortably. Pain management via prn meds. He is OOB and cont to ambulate unassisted. Voiding spontaneously. Repeat A/P CT 05/15/19 shows secondary collection which doesn't communicate with current drain location. Denies n/v/c, CP or SOB. Last Vital Signs Temp Pulse Resp BP Pulse Ox 98.8 F 78 20 106/65 100 05/17/19 06:00 05/17/19 06:00 05/17/19 06:00 05/17/19 06:00 05/16/19 21:00 Physical Exam General: NAD Pulm: CTA bilat Cor: RRR Abd: Soft. All surgical ports c/d/i. ANGELO 20 mL/24hrs (seropurulent) LE: Soft, non-tender bilat. SCD's bilat. Problem List - Problems (1) Appendicitis, acute Assessment/Plan: POD #7 s/p Laprascopic Appendectomy (retrocecal); POD #5 (in IR). Cont OOB and ambulate f/u CBC & BMP Monitor & record ANGELO output q shift Diet as tolerated. IV ABX NPO as patient is going to IR for second drain placement, THEN can resume his normal diet. Hold morning Lovenox dose Code(s): K35.80 - UNSPECIFIED ACUTE APPENDICITIS Qualifiers: Acute appendicitis type: unspecified acute appendicitis type Qualified Code (s): K35.80 - Unspecified acute appendicitis Problem List - Problems (1) Appendicitis, acute Code(s): K35.80 - UNSPECIFIED ACUTE APPENDICITIS Qualifiers: Acute appendicitis type: unspecified acute appendicitis type Qualified Code (s): K35.80 - Unspecified acute appendicitis
[2019-05-17 08:59] LABS: ALBUMIN 2.3 g/dl (3.4-5.0); BILIRUBIN,TOTAL 0.3 mg/dL (0.2-1); BLOOD UREA NITROGEN 12.1 mg/dL (7-18); CALCIUM 8.6 mg/dL (8.5-10.1); CREATININE 0.7 mg/dL (0.55-1.3); POTASSIUM 4.2 mmol/L (3.5-5.1); TOT PROT 6.5 g/dl (6.4-8.2)
[2019-05-17] MEDS: oxyCODONE HCL 5 MG TABLET PO PRN ×2 (09:25→17:36)
--- NOTE | 2019-05-17 10:26 | PN ---
Progress Note, Physician History of Present Illness: patient stable no new issues drain draining - Current Medication List Current Medications: Active Medications Acetaminophen (Tylenol -) 650 mg PO Q4H PRN PRN Reason: PAIN OR FEVER Last Admin: 05/16/19 21:39 Dose: 650 mg Bacitracin (Bacitracin -) 1 applic TP DAILY ELIESER Last Admin: 05/16/19 10:46 Dose: 1 applic Enoxaparin Sodium (Lovenox -) 40 mg SQ DAILY ELIESER Last Admin: 05/16/19 09:57 Dose: 40 mg Piperacillin Sod/Tazobactam (Sod 3.375 gm/ Dextrose) 50 mls @ 100 mls/hr IVPB Q8H-IV ELIESER; Protocol Last Admin: 05/17/19 02:29 Dose: 100 mls/hr Ondansetron HCl (Zofran Injection) 4 mg IVPUSH Q6H PRN PRN Reason: NAUSEA AND/OR VOMITING Oxycodone HCl (Roxicodone -) 5 mg PO Q6H PRN PRN Reason: PAIN LEVEL 6-10 Last Admin: 05/17/19 09:25 Dose: 5 mg - Objective Vital Signs: Vital Signs Temperature 99.2 F 05/17/19 10:00 Pulse Rate 78 05/17/19 10:00 Respiratory Rate 100 H 05/17/19 10:00 Blood Pressure 114/66 05/17/19 10:00 O2 Sat by Pulse Oximetry (%) 97 05/17/19 09:00 Constitutional: Yes: No Distress, Calm Cardiovascular: Yes: S1, S2 Respiratory: Yes: Regular, CTA Bilaterally Gastrointestinal: Yes: Normal Bowel Sounds, Soft, Other (drain in place) Musculoskeletal: Yes: WNL Extremities: Yes: WNL Wound/Incision: Yes: Other (blisters around he wound) Psychiatric: Yes: Alert Labs: CBC, BMP 05/17/19 06:52 05/17/19 06:52 INR, PTT INR 1.21 (0.83-1.09) H 05/10/19 07:00 Assessment/Plan continue current mgmt see if the fluid cx is send monitor wbc rest as per the team appendicitis abd abscess leukocytosis peritonitis continue current mgmt abx
[2019-05-17] MEDS ORDERED: HYDROmorphone HCl 2 MG/ML VIAL IVPB ONE (10:30)
[2019-05-17] MEDS: BACITRACIN 15 GM TUBE TOPICAL OINTMENT TP SCH (11:46)
--- NOTE | 2019-05-17 15:13 | PN ---
Teaching Attending Note Name of Resident: Narendra Montano ATTENDING PHYSICIAN STATEMENT I saw and evaluated the patient. I reviewed the resident's note and discussed the case with the resident. I agree with the resident's findings and plan as documented. SUBJECTIVE: Patient is feeling better after 2nd ANGELO drainage today. feels thirsty. OBJECTIVE: Vital Signs Temperature 98.4 F 05/17/19 12:00 Pulse Rate 87 05/17/19 12:00 Respiratory Rate 20 05/17/19 12:00 Blood Pressure 104/63 05/17/19 12:00 O2 Sat by Pulse Oximetry (%) 98 05/17/19 10:57 GENERAL: AA0x3. in no acute distress. HEAD: Normal with no signs of trauma. NECK: supple. LUNGS: Breath sounds equal, clear to auscultation bilaterally, no wheezes, no crackles, no accessory muscle use. HEART: Regular rate and rhythm, S1, S2 without murmur, rub or gallop. ABDOMEN: 2 ANGELO drainage s/p 2nd ANGELO today , no rebound. Bowel sound positive. EXTREMITIES: 2+ pulses, warm, well-perfused, no edema. NEUROLOGICAL: Cranial nerves II through XII grossly intact. Normal speech, gait not observed. PSYCH: Normal mood, normal affect. SKIN: Warm, dry, [address], draining well, bullae due to tape. CBCD WBC 12.0 K/mm3 (4.0-10.0) H 05/17/19 06:52 RBC 4.36 M/mm3 (4.00-5.60) 05/17/19 06:52 Hgb 13.5 GM/dL (11.7-16.9) 05/17/19 06:52 Hct 40.0 % (35.4-49) 05/17/19 06:52 MCV 91.8 fl (80-96) 05/17/19 06:52 MCHC 33.9 g/dl (32.0-35.9) 05/17/19 06:52 RDW 12.8 % (11.9-15.9) 05/17/19 06:52 Plt Count 466 K/MM3 (134-434) H 05/17/19 06:52 MPV 7.3 fl (7.5-11.1) L 05/17/19 06:52 CMP Sodium 138 mmol/L (136-145) 05/17/19 06:52 Potassium 4.2 mmol/L (3.5-5.1) 05/17/19 06:52 Chloride 104 mmol/L (98-107) 05/17/19 06:52 Carbon Dioxide 25 mmol/L (21-32) 05/17/19 06:52 Anion Gap 9 MMOL/L (8-16) 05/17/19 06:52 BUN 12.1 mg/dL (7-18) 05/17/19 06:52 Creatinine 0.7 mg/dL (0.55-1.3) 05/17/19 06:52 Random Glucose 94 mg/dL (74-106) 05/17/19 06:52 Calcium 8.6 mg/dL (8.5-10.1) 05/17/19 06:52 Total Bilirubin 0.3 mg/dL (0.2-1) 05/17/19 06:52 AST 45 U/L (15-37) H 05/17/19 06:52 ALT 75 U/L (13-61) H 05/17/19 06:52 Alkaline Phosphatase 82 U/L (45-117) 05/17/19 06:52 Total Protein 6.5 g/dl (6.4-8.2) 05/17/19 06:52 Albumin 2.3 g/dl (3.4-5.0) L 05/17/19 06:52 Current Medications Generic Name Dose Route Start Last Admin Trade Name Freq PRN Reason Stop Dose Admin Acetaminophen 650 mg 05/10/19 21:30 05/16/19 21:39 Tylenol - PO 650 mg Q4H PRN Administration PAIN OR FEVER Bacitracin 1 applic 05/16/19 10:00 05/17/19 11:46 Bacitracin - TP 1 applic DAILY ELIESER Administration Enoxaparin Sodium 40 mg 05/12/19 10:00 05/16/19 09:57 Lovenox - SQ 40 mg DAILY ELIESER Administration Piperacillin Sod/Tazobactam 50 mls @ 100 mls/hr 05/16/19 12:00 05/17/19 11:45 Sod 3.375 gm/ Dextrose IVPB 100 mls/hr Q8H-IV ELIESER Administration Protocol Ondansetron HCl 4 mg 05/10/19 16:15 Zofran Injection IVPUSH Q6H PRN NAUSEA AND/OR VOMITING Oxycodone HCl 5 mg 05/15/19 17:57 05/17/19 09:25 Roxicodone - PO 5 mg Q6H PRN Administration PAIN LEVEL 6-10 Home Medications Medication Instructions Recorded Ibuprofen [Ibu] 600 mg PO Q6H PRN #20 tablet 05/11/19 Microbiology 05/13/19 12:00 Abdomen Gram Stain - Final 05/13/19 12:00 Abdomen Body Fluid Culture - Final Escherichia Coli Escherichia Coli#2 Enterococcus Avium 05/13/19 12:00 Abdomen Anaerobic Culture - Final Bacteroides Caccae 05/17/19 10:45 Abscess Gram Stain - Final 05/17/19 10:45 Abscess CONCETTA Preparation - Preliminary 05/17/19 10:45 Abscess Fungal Culture - Preliminary 05/12/19 08:40 Blood - Peripheral Venous Blood Culture - Final NO GROWTH AFTER 5 DAYS INCUBATION 05/12/19 08:55 Blood - Peripheral Venous Blood Culture - Final NO GROWTH AFTER 5 DAYS INCUBATION 05/12/19 08:00 Urine - Urine Clean Catch Urine Culture - Final NO GROWTH OBTAINED ASSESSMENT AND PLAN: Patient is a 48yo male with no PMHx who presented with abdominal pain and was found to have an acute appendicitis # POD #7 s/p Laprascopic Appendectomy (retrocecal); POD #5 (in IR), by , on IV zosyn continue , record ANGELO output q shift # abdominal abscess , s/p IR drainage x 2 , second drainage today, and ANGELO placement # contact dermatitis to tape with Bullae; blood cx neg to date ; fluid cx as above , if no improvement in am will start silvadene cream bid. - pain control , diet regular ,Cont OOB and ambulate DVT Px: Lovenox
--- NOTE | 2019-05-17 16:45 | PN ---
Physical Exam: SUBJECTIVE: Patient seen and examined at bedside. Pt was in pain overnight so oxycontin was given. OBJECTIVE: Vital Signs Period Temp Pulse Resp BP Sys/Rivera Pulse Ox Last 24 Hr 98.4 F-99.6 F 75-98 16-100 98-117/63-76 95-100 GENERAL: The patient is awake, alert, and fully oriented, in slight acute distress. HEAD: Normal with no signs of trauma. NECK: supple. LUNGS: Breath sounds equal, clear to auscultation bilaterally, no wheezes, no crackles, no accessory muscle use. HEART: Regular rate and rhythm, S1, S2 without murmur, rub or gallop. ABDOMEN: tender around ANGELO tube, nondistended, RUQ guarding around drainage site , no rebound. EXTREMITIES: 2+ pulses, warm, well-perfused, no edema. NEUROLOGICAL: Cranial nerves II through XII grossly intact. Normal speech, gait not observed. PSYCH: Normal mood, normal affect. SKIN: Warm, dry, ANGELO drain in place, draining purulent fluid, but bullae around taping, no rashes or lesions noted, bruising on knees. Laboratory Results - last 24 hr 05/17/19 05/17/19 06:52 06:52 WBC 12.0 H RBC 4.36 Hgb 13.5 Hct 40.0 MCV 91.8 MCH 31.1 MCHC 33.9 RDW 12.8 Plt Count 466 H MPV 7.3 L Absolute Neuts (auto) 9.6 H Neutrophils % 80.2 Lymphocytes % 8.3 D Monocytes % 6.6 Eosinophils % 4.5 Basophils % 0.4 Nucleated RBC % 0 Sodium 138 Potassium 4.2 Chloride 104 Carbon Dioxide 25 Anion Gap 9 BUN 12.1 Creatinine 0.7 Est GFR (CKD-EPI)AfAm 131.17 Est GFR (CKD-EPI)NonAf 113.17 Random Glucose 94 Calcium 8.6 Total Bilirubin 0.3 AST 45 H ALT 75 H Alkaline Phosphatase 82 Total Protein 6.5 Albumin 2.3 L Active Medications Generic Name Dose Route Start Last Admin Trade Name Freq PRN Reason Stop Dose Admin Acetaminophen 650 mg 05/10/19 21:30 05/16/19 21:39 Tylenol - PO 650 mg Q4H PRN Administration PAIN OR FEVER Bacitracin 1 applic 05/16/19 10:00 05/17/19 11:46 Bacitracin - TP 1 applic DAILY ELIESER Administration Enoxaparin Sodium 40 mg 05/12/19 10:00 05/16/19 09:57 Lovenox - SQ 40 mg DAILY ELIESER Administration Piperacillin Sod/Tazobactam 50 mls @ 100 mls/hr 05/16/19 12:00 05/17/19 11:45 Sod 3.375 gm/ Dextrose IVPB 100 mls/hr Q8H-IV ELIESER Administration Protocol Ondansetron HCl 4 mg 05/10/19 16:15 Zofran Injection IVPUSH Q6H PRN NAUSEA AND/OR VOMITING Oxycodone HCl 5 mg 05/15/19 17:57 05/17/19 09:25 Roxicodone - PO 5 mg Q6H PRN Administration PAIN LEVEL 6-10 ASSESSMENT/PLAN: CT: Additional inferior collection that may not connect to the area of the drainage catheter. Air and fluid collection within the RLQ at the site of previous appendectomy is reidentified 6.1 X2.7 X 6.4. Atelectatic changes in b/ l bases and small rt pleural effusions (unchanged from prior image). 48 y/o man with no PMH who presented with abd pain and was found to have acute appendicitis. #Pericolic abscess - rigid abdomen, febrile - ANGELO tube draining serosanguinous fluid, IR drained abscess (6cc of purulent drainage) will assess his symptoms tomorrow and potential repeat CT. - Cx pending. - d/W Dr. Talavera- continue zosyn and monitor. - pain control with oxycodone - zofran for nausea - incentive иван every hour 10 X. #bullae around gauze tape - likely 2/2 contact dermatitis - Sx ordered bacitracin, if does not improve may switch to silvadine cream. FEN: No fluids indicated, monitor lytes, regular diet. DVT PPX: back on lovenox 40mg SQ after IR drainage. Visit type - Emergency Visit Emergency Visit: No - New Patient This patient is new to me today: No - Critical Care Critical Care patient: No - Discharge Referral Referred to [facility] No ATTENDING PHYSICIAN STATEMENT I saw and evaluated the patient. I reviewed the resident's note and discussed the case with the resident. I agree with the resident's findings and plan as documented. SUBJECTIVE: OBJECTIVE: ASSESSMENT AND PLAN:
[2019-05-17] MEDS: ENOXAPARIN NA (PORCINE) 40 MG/0.4 ML DISP.SYRIN SQ SCH (17:37)
[2019-05-18] MEDS: oxyCODONE HCL 5 MG TABLET PO PRN ×3 (00:33→23:47)
[2019-05-18] MEDS: ACETAMINOPHEN 325 MG TABLET (FP) PO PRN ×2 (00:34→07:03)
[2019-05-18] MEDS ORDERED: PIPERACILLIN/TAZOBACTAM 3.375 GM VIAL IVPB ONE ×3 (02:13→17:12)
[2019-05-18] MEDS ORDERED: DEXTROSE 5%-WATER - 50 ML IVPB ONE ×3 (02:13→17:13)
[2019-05-18] MEDS: PIPERACILLIN/TAZOB 3.375 GM 3.375 GM in DEXTROSE 5%-WATER - 50 ML IVPB SCH ×3 (02:33→17:31)
[2019-05-18 07:08] LABS: BASO % 0.5 % (0-2.0); EOS % 5.8 % (0-4.5); HEMATOCRIT 39.4 % (35.4-49); HEMOGLOBIN 13.2 GM/dL (11.7-16.9); LYMPH % 17.8 % (8-40); MCH 31.2 pg (25.7-33.7); MCHC 33.6 g/dl (32.0-35.9); MEAN CELL VOLUME 92.7 fl (80-96); MEAN PLT VOLUME 7.2 fl (7.5-11.1); MONO % 7.6 % (3.8-10.2); NEUT % 68.3 % (42.8-82.8); PLATELET COUNT 477 K/MM3 (134-434); RBC 4.24 M/mm3 (4.00-5.60); WHITE BLOOD COUNT 9.4 K/mm3 (4.0-10.0)
[2019-05-18 07:24] LABS: ALBUMIN 2.4 g/dl (3.4-5.0); BILIRUBIN,TOTAL 0.3 mg/dL (0.2-1); BLOOD UREA NITROGEN 19.4 mg/dL (7-18); CALCIUM 8.8 mg/dL (8.5-10.1); CREATININE 0.8 mg/dL (0.55-1.3); POTASSIUM 4.5 mmol/L (3.5-5.1); TOT PROT 6.3 g/dl (6.4-8.2)
--- NOTE | 2019-05-18 09:04 | PN ---
Teaching Attending Note Name of Resident: Narendra Montano ATTENDING PHYSICIAN STATEMENT I saw and evaluated the patient. I reviewed the resident's note and discussed the case with the resident. I agree with the resident's findings and plan as documented. SUBJECTIVE: Patient is feeling better with no acute distress. Feels better OBJECTIVE: Vital Signs Temperature 98.5 F 05/18/19 06:00 Pulse Rate 72 05/18/19 06:00 Respiratory Rate 20 05/18/19 06:00 Blood Pressure 109/65 05/18/19 06:00 O2 Sat by Pulse Oximetry (%) 98 05/17/19 21:00 GENERAL: AA0x3. in no acute distress. HEAD: Normal with no signs of trauma. NECK: supple. LUNGS: Breath sounds equal, clear to auscultation bilaterally, no wheezes, no crackles, no accessory muscle use. HEART: Regular rate and rhythm, S1, S2 without murmur, rub or gallop. ABDOMEN: 2 ANGELO drainage s/p 2nd ANGELO clearing up the drainage more serasanginous , no rebound. Bowel sound positive. EXTREMITIES: 2+ pulses, warm, well-perfused, no edema. NEUROLOGICAL: Cranial nerves II through XII grossly intact. Normal speech, gait not observed. PSYCH: Normal mood, normal affect. SKIN: Warm, dry, [address],continues to drain draining well, bullae due to tape applied Silvadene cream. . CBCD WBC 9.4 K/mm3 (4.0-10.0) 05/18/19 05:40 RBC 4.24 M/mm3 (4.00-5.60) 05/18/19 05:40 Hgb 13.2 GM/dL (11.7-16.9) 05/18/19 05:40 Hct 39.4 % (35.4-49) 05/18/19 05:40 MCV 92.7 fl (80-96) 05/18/19 05:40 MCHC 33.6 g/dl (32.0-35.9) 05/18/19 05:40 RDW 13.0 % (11.9-15.9) 05/18/19 05:40 Plt Count 477 K/MM3 (134-434) H 05/18/19 05:40 MPV 7.2 fl (7.5-11.1) L 05/18/19 05:40 CMP Sodium 138 mmol/L (136-145) 05/18/19 05:40 Potassium 4.5 mmol/L (3.5-5.1) 05/18/19 05:40 Chloride 102 mmol/L (98-107) 05/18/19 05:40 Carbon Dioxide 29 mmol/L (21-32) 05/18/19 05:40 Anion Gap 6 MMOL/L (8-16) L 05/18/19 05:40 BUN 19.4 mg/dL (7-18) H 05/18/19 05:40 Creatinine 0.8 mg/dL (0.55-1.3) 05/18/19 05:40 Random Glucose 91 mg/dL (74-106) 05/18/19 05:40 Calcium 8.8 mg/dL (8.5-10.1) 05/18/19 05:40 Total Bilirubin 0.3 mg/dL (0.2-1) 05/18/19 05:40 AST 39 U/L (15-37) H 05/18/19 05:40 ALT 72 U/L (13-61) H 05/18/19 05:40 Alkaline Phosphatase 77 U/L (45-117) 05/18/19 05:40 Total Protein 6.3 g/dl (6.4-8.2) L 05/18/19 05:40 Albumin 2.4 g/dl (3.4-5.0) L 05/18/19 05:40 Current Medications Generic Name Dose Route Start Last Admin Trade Name Freq PRN Reason Stop Dose Admin Acetaminophen 650 mg 05/10/19 21:30 05/18/19 07:03 Tylenol - PO 650 mg Q4H PRN Administration PAIN OR FEVER Bacitracin 1 applic 05/16/19 10:00 05/17/19 11:46 Bacitracin - TP 1 applic DAILY ELIESER Administration Enoxaparin Sodium 40 mg 05/17/19 17:00 05/17/19 17:37 Lovenox - SQ 40 mg DAILY ELIESER Administration Piperacillin Sod/Tazobactam 50 mls @ 100 mls/hr 05/16/19 12:00 05/18/19 02:33 Sod 3.375 gm/ Dextrose IVPB 100 mls/hr Q8H-IV ELIESER Administration Protocol Ondansetron HCl 4 mg 05/10/19 16:15 Zofran Injection IVPUSH Q6H PRN NAUSEA AND/OR VOMITING Oxycodone HCl 5 mg 05/15/19 17:57 05/18/19 00:33 Roxicodone - PO 5 mg Q6H PRN Administration PAIN LEVEL 6-10 Silver Sulfadiazine 1 applic 05/18/19 10:00 Silvadene - TP DAILY ELIESER Home Medications Medication Instructions Recorded Ibuprofen [Ibu] 600 mg PO Q6H PRN #20 tablet 05/11/19 Microbiology 05/13/19 12:00 Abdomen Gram Stain - Final 05/13/19 12:00 Abdomen Body Fluid Culture - Final Escherichia Coli Escherichia Coli#2 Enterococcus Avium 05/13/19 12:00 Abdomen Anaerobic Culture - Final Bacteroides Caccae 05/17/19 10:45 Abscess Gram Stain - Final 05/17/19 10:45 Abscess CONCETTA Preparation - Preliminary 05/17/19 10:45 Abscess Fungal Culture - Preliminary 05/12/19 08:40 Blood - Peripheral Venous Blood Culture - Final NO GROWTH AFTER 5 DAYS INCUBATION 05/12/19 08:55 Blood - Peripheral Venous Blood Culture - Final NO GROWTH AFTER 5 DAYS INCUBATION 05/12/19 08:00 Urine - Urine Clean Catch Urine Culture - Final NO GROWTH OBTAINED ASSESSMENT AND PLAN: Patient is a 48yo male with no PMHx who presented with abdominal pain and was found to have an acute appendicitis # POD #8 s/p Laprascopic Appendectomy (retrocecal); POD #6 (in IR), by , on IV zosyn continue , record ANGELO output q shift # abdominal abscess , s/p IR drainage x 2 , second drainage 05/17/2019, and ANGELO placement , # contact dermatitis to tape with Bullae: silvadene cream over the Bullae ; blood cx neg to date ; fluid cx as above , patient is improving, as per .Surgeon improving and possible dc in am with the drainage and follow up with him as an outpatient. - pain control , diet regular ,Cont OOB and ambulate DVT Px: Lovenox
[2019-05-18] MEDS: SILVER SULFADIAZINE 1% TOP CREAM 50 GM JAR TP SCH (10:34)
[2019-05-18] MEDS: ENOXAPARIN NA (PORCINE) 40 MG/0.4 ML DISP.SYRIN SQ SCH (10:34)
[2019-05-18] MEDS: BACITRACIN 15 GM TUBE TOPICAL OINTMENT TP SCH (10:35)
--- NOTE | 2019-05-18 10:40 | PN ---
Progress Note, Physician History of Present Illness: stable feels much better post drain of the collection - Current Medication List Current Medications: Active Medications Acetaminophen (Tylenol -) 650 mg PO Q4H PRN PRN Reason: PAIN OR FEVER Last Admin: 05/18/19 07:03 Dose: 650 mg Bacitracin (Bacitracin -) 1 applic TP DAILY [facility] Last Admin: 05/17/19 11:46 Dose: 1 applic Enoxaparin Sodium (Lovenox -) 40 mg SQ DAILY ELIESER Last Admin: 05/17/19 17:37 Dose: 40 mg Piperacillin Sod/Tazobactam (Sod 3.375 gm/ Dextrose) 50 mls @ 100 mls/hr IVPB Q8H-IV ELIESER; Protocol Last Admin: 05/18/19 02:33 Dose: 100 mls/hr Ondansetron HCl (Zofran Injection) 4 mg IVPUSH Q6H PRN PRN Reason: NAUSEA AND/OR VOMITING Oxycodone HCl (Roxicodone -) 5 mg PO Q6H PRN PRN Reason: PAIN LEVEL 6-10 Last Admin: 05/18/19 00:33 Dose: 5 mg Silver Sulfadiazine (Silvadene -) 1 applic TP DAILY [facility] - Objective Vital Signs: Vital Signs Temperature 98.5 F 05/18/19 06:00 Pulse Rate 72 05/18/19 06:00 Respiratory Rate 20 05/18/19 06:00 Blood Pressure 109/65 05/18/19 06:00 O2 Sat by Pulse Oximetry (%) 98 05/17/19 21:00 Constitutional: Yes: No Distress, Calm Cardiovascular: Yes: S1, S2 Respiratory: Yes: Regular, CTA Bilaterally Gastrointestinal: Yes: Normal Bowel Sounds, Soft, Other ([address]) Genitourinary: Yes: WNL Musculoskeletal: Yes: WNL Extremities: Yes: WNL Wound/Incision: Yes: Dressing Dry and Intact Neurological: Yes: Alert, Oriented Psychiatric: Yes: Alert, Oriented Labs: CBC, BMP 05/18/19 05:40 05/18/19 05:40 INR, PTT INR 1.21 (0.83-1.09) H 05/10/19 07:00 Assessment/Plan continue current mgmt see if the fluid cx is send monitor wbc rest as per the team appendicitis abd abscess leukocytosis peritonitis plan continue current mgmt monitor drainage continue abx rest as per the team
--- NOTE | 2019-05-18 10:43 | PN ---
Progress Note (short form) - Note Progress Note: POD #8 s/p Laprascopic Appendectomy No acute events since surgical procedure per RN notes. Patient resting comfortably. Pain management via prn meds. He is OOB and cont to ambulate unassisted. Voiding spontaneously. Stooling. S/p second IR guided drain placement 05/17/19 Denies n/v/c, CP or SOB. Last Vital Signs Temp Pulse Resp BP Pulse Ox 98.5 F 72 20 109/65 98 05/18/19 06:00 05/18/19 06:00 05/18/19 06:00 05/18/19 06:00 05/17/19 21:00 CBC, BMP 05/18/19 05:40 05/18/19 05:40 PE General: NAD Pulm: CTA bilat Cor: RRR Abd: Soft. All surgical ports c/d/i. ANGELO #1: 7mL (seropurulent) ANGELO #2: 20 mL/24hrs (purulent) LE: Soft, non-tender bilat. SCD's bilat. Problem List - Problems (1) Appendicitis, acute Assessment/Plan: POD #8 s/p Laprascopic Appendectomy (retrocecal) Cont OOB and ambulate f/u CBC & BMP Monitor & record ANGELO output q shift Diet as tolerated. IV ABX Will most likely be discharged home with ANGELO drain so will need to be instructed how to empty and place back on suction. Can possibly dc home tomorrow. Will need out-patient oral antibiotics as per ID recommendation Above plan discussed with Dr. Manley and agrees Problem List - Problems (1) Appendicitis, acute Code(s): K35.80 - UNSPECIFIED ACUTE APPENDICITIS Qualifiers: Acute appendicitis type: unspecified acute appendicitis type Qualified Code (s): K35.80 - Unspecified acute appendicitis
--- NOTE | 2019-05-18 15:31 | PN ---
Physical Exam: SUBJECTIVE: Patient seen and examined at the bedside. Pt not in any distress. OBJECTIVE: Vital Signs Period Temp Pulse Resp BP Sys/Rivera Pulse Ox Last 24 Hr 98.5 F-99.5 F 72-109 18-22 98-113/61-68 98 GENERAL: The patient is awake, alert, and fully oriented, in no acute distress. HEAD: Normal with no signs of trauma. EYES: PERRL, extraocular movements grosly intact, sclera anicteric, conjunctiva clear. No ptosis. ENT: Ears normal, nares patent, oropharynx clear without exudates, moist mucous membranes. NECK: Trachea midline, gross full range of motion, supple. LUNGS: Breath sounds equal, slight crackles on exam worse on left upper lobe. HEART: Regular rate and rhythm, S1, S2 without murmur, rub or gallop. ABDOMEN: Soft, nontender, nondistended, normoactive bowel sounds, no guarding, no rebound. EXTREMITIES: 2+ pulses, warm, well-perfused, no edema. NEUROLOGICAL: Cranial nerves II through XII grossly intact. Normal speech, gait not observed. PSYCH: Normal mood, normal affect. SKIN: Warm, dry, no rashes or lesions noted Laboratory Results - last 24 hr 05/18/19 05/18/19 05:40 05:40 WBC 9.4 RBC 4.24 Hgb 13.2 Hct 39.4 MCV 92.7 MCH 31.2 MCHC 33.6 RDW 13.0 Plt Count 477 H MPV 7.2 L Absolute Neuts (auto) 6.4 Neutrophils % 68.3 Lymphocytes % 17.8 D Monocytes % 7.6 Eosinophils % 5.8 H Basophils % 0.5 Nucleated RBC % 0 Sodium 138 Potassium 4.5 Chloride 102 Carbon Dioxide 29 Anion Gap 6 L BUN 19.4 H Creatinine 0.8 Est GFR (CKD-EPI)AfAm 124.16 Est GFR (CKD-EPI)NonAf 107.13 Random Glucose 91 Calcium 8.8 Total Bilirubin 0.3 AST 39 H ALT 72 H Alkaline Phosphatase 77 Total Protein 6.3 L Albumin 2.4 L Active Medications Generic Name Dose Route Start Last Admin Trade Name Freq PRN Reason Stop Dose Admin Acetaminophen 650 mg 05/10/19 21:30 05/18/19 07:03 Tylenol - PO 650 mg Q4H PRN Administration PAIN OR FEVER Bacitracin 1 applic 05/16/19 10:00 05/18/19 10:35 Bacitracin - TP Not Given DAILY ELIESER Enoxaparin Sodium 40 mg 05/17/19 17:00 05/18/19 10:34 Lovenox - SQ 40 mg DAILY ELIESER Administration Piperacillin Sod/Tazobactam 50 mls @ 100 mls/hr 05/16/19 12:00 05/18/19 10:35 Sod 3.375 gm/ Dextrose IVPB 100 mls/hr Q8H-IV ELIESER Administration Protocol Ondansetron HCl 4 mg 05/10/19 16:15 Zofran Injection IVPUSH Q6H PRN NAUSEA AND/OR VOMITING Oxycodone HCl 5 mg 05/15/19 17:57 05/18/19 00:33 Roxicodone - PO 5 mg Q6H PRN Administration PAIN LEVEL 6-10 Silver Sulfadiazine 1 applic 05/18/19 10:00 05/18/19 10:34 Silvadene - TP 1 applic DAILY ELIESER Administration ASSESSMENT/PLAN: 48 y/o man with no PMH who presented with abd pain and was found to have acute appendicitis. #Pericolic abscess - ANGELO tube draining purulent to serosanguinous fluid. - IR drained abscess will assess his symptoms tomorrow. - Cx pending. - d/W Dr. Talavera- continue zosyn and monitor. - pain control with oxycodone - zofran for nausea - incentive иван. - Possible d/c tm with drain, pt needs to be taught how to drain the ANGELO (as per surgery), may need PO ABX at home. #bullae around gauze tape - likely 2/2 contact dermatitis, still there today - on silver sulfadiazine cream. FEN: No fluids indicated, monitor lytes, regular diet. DVT PPX: back on lovenox 40mg SQ after IR drainage. Visit type - Emergency Visit Emergency Visit: No - New Patient This patient is new to me today: No - Critical Care Critical Care patient: No - Discharge Referral Referred to [facility] No ATTENDING PHYSICIAN STATEMENT I saw and evaluated the patient. I reviewed the resident's note and discussed the case with the resident. I agree with the resident's findings and plan as documented. SUBJECTIVE: OBJECTIVE: ASSESSMENT AND PLAN:
[2019-05-19] MEDS ORDERED: PIPERACILLIN/TAZOBACTAM 3.375 GM VIAL IVPB ONE ×3 (01:31→17:39)
[2019-05-19] MEDS ORDERED: DEXTROSE 5%-WATER - 50 ML IVPB ONE ×3 (01:31→17:40)
[2019-05-19] MEDS ORDERED: PT OWN MED DRAWER 7, Y5N ONE (01:40)
[2019-05-19] MEDS: PIPERACILLIN/TAZOB 3.375 GM 3.375 GM in DEXTROSE 5%-WATER - 50 ML IVPB SCH ×3 (02:46→18:05)
[2019-05-19 08:11] LABS: ALBUMIN 2.6 g/dl (3.4-5.0); BILIRUBIN,TOTAL 0.3 mg/dL (0.2-1); BLOOD UREA NITROGEN 16.4 mg/dL (7-18); CREATININE 0.9 mg/dL (0.55-1.3); POTASSIUM 4.4 mmol/L (3.5-5.1); TOT PROT 6.8 g/dl (6.4-8.2)
[2019-05-19 08:16] LABS: BASO % 0.7 % (0-2.0); EOS % 5.6 % (0-4.5); HEMATOCRIT 41.3 % (35.4-49); HEMOGLOBIN 13.8 GM/dL (11.7-16.9); LYMPH % 21.9 % (8-40); MCH 30.7 pg (25.7-33.7); MCHC 33.5 g/dl (32.0-35.9); MEAN CELL VOLUME 91.8 fl (80-96); MEAN PLT VOLUME 7.1 fl (7.5-11.1); MONO % 8.4 % (3.8-10.2); NEUT % 63.4 % (42.8-82.8); PLATELET COUNT 533 K/MM3 (134-434); RDW 12.9 % (11.9-15.9)
--- NOTE | 2019-05-19 08:54 | PN ---
Progress Note, Physician History of Present Illness: patient stable no new issues - Current Medication List Current Medications: Active Medications Acetaminophen (Tylenol -) 650 mg PO Q4H PRN PRN Reason: PAIN OR FEVER Last Admin: 05/18/19 07:03 Dose: 650 mg Bacitracin (Bacitracin -) 1 applic TP DAILY ELIESER Last Admin: 05/18/19 10:35 Dose: Not Given Enoxaparin Sodium (Lovenox -) 40 mg SQ DAILY ELIESER Last Admin: 05/18/19 10:34 Dose: 40 mg Piperacillin Sod/Tazobactam (Sod 3.375 gm/ Dextrose) 50 mls @ 100 mls/hr IVPB Q8H-IV ELIESER; Protocol Last Admin: 05/19/19 02:46 Dose: 100 mls/hr Ondansetron HCl (Zofran Injection) 4 mg IVPUSH Q6H PRN PRN Reason: NAUSEA AND/OR VOMITING Oxycodone HCl (Roxicodone -) 5 mg PO Q6H PRN PRN Reason: PAIN LEVEL 6-10 Last Admin: 05/18/19 23:47 Dose: 5 mg Silver Sulfadiazine (Silvadene -) 1 applic TP DAILY [facility] Last Admin: 05/18/19 10:34 Dose: 1 applic - Objective Vital Signs: Vital Signs Temperature 98.9 F 05/19/19 05:00 Pulse Rate 73 05/19/19 05:00 Respiratory Rate 20 05/19/19 05:00 Blood Pressure 95/59 L 05/19/19 05:00 O2 Sat by Pulse Oximetry (%) 97 05/18/19 20:14 Constitutional: Yes: No Distress, Calm Cardiovascular: Yes: S1, S2 Respiratory: Yes: Regular, CTA Bilaterally Gastrointestinal: Yes: Normal Bowel Sounds, Soft Musculoskeletal: Yes: WNL Extremities: Yes: WNL Wound/Incision: Yes: Dressing Dry and Intact, Other Neurological: Yes: Alert, Oriented Psychiatric: Yes: Alert, Oriented Labs: CBC, BMP 05/19/19 06:45 05/19/19 06:45 INR, PTT INR 1.21 (0.83-1.09) H 05/10/19 07:00 Assessment/Plan continue current mgmt see if the fluid cx is send monitor wbc rest as per the team appendicitis abd abscess leukocytosis peritonitis continue current mgmt abx will d/w the team organisms still not back
[2019-05-19] MEDS: BACITRACIN 15 GM TUBE TOPICAL OINTMENT TP SCH (10:02)
[2019-05-19] MEDS: ENOXAPARIN NA (PORCINE) 40 MG/0.4 ML DISP.SYRIN SQ SCH (10:02)
[2019-05-19] MEDS: SILVER SULFADIAZINE 1% TOP CREAM 50 GM JAR TP SCH (10:03)
--- NOTE | 2019-05-19 14:23 | PN ---
Physical Exam: SUBJECTIVE: Patient seen and examined at bedside this AM. No more abdominal pain or fevers overnight. OBJECTIVE: Vital Signs Period Temp Pulse Resp BP Sys/Rivera Pulse Ox Last 24 Hr 98.2 F-99.6 F 71-94 18-20 95-110/59-71 97 GENERAL: The patient is awake, alert, and fully oriented, in no acute distress. HEAD: Normal with no signs of trauma. EYES: PERRL, extraocular movements intact, sclera anicteric, conjunctiva clear. No ptosis. ENT: Ears normal, nares patent, oropharynx clear without exudates, moist mucous membranes. NECK: supple. LUNGS: Breath sounds equal, clear to auscultation bilaterally HEART: Regular rate and rhythm, S1, S2 without murmur, rub or gallop. ABDOMEN: Soft, nontender, nondistended, ttp in area where drainage is, bullae improved, size reduced. EXTREMITIES: warm, well-perfused, no edema. NEUROLOGICAL: Cranial nerves II through XII grossly intact. Normal speech, gait not observed. PSYCH: Normal mood, normal affect. SKIN: Warm, dry, no rashes or lesions noted Laboratory Results - last 24 hr 05/19/19 05/19/19 06:45 06:45 WBC 8.0 RBC 4.50 Hgb 13.8 Hct 41.3 MCV 91.8 MCH 30.7 MCHC 33.5 RDW 12.9 Plt Count 533 H MPV 7.1 L Absolute Neuts (auto) 5.1 Neutrophils % 63.4 Lymphocytes % 21.9 D Monocytes % 8.4 Eosinophils % 5.6 H Basophils % 0.7 Nucleated RBC % 0 Sodium 139 Potassium 4.4 Chloride 103 Carbon Dioxide 28 Anion Gap 9 BUN 16.4 Creatinine 0.9 Est GFR (CKD-EPI)AfAm 118.30 Est GFR (CKD-EPI)NonAf 102.07 Random Glucose 89 Calcium 9.0 Total Bilirubin 0.3 AST 28 ALT 67 H Alkaline Phosphatase 77 Total Protein 6.8 Albumin 2.6 L Active Medications Generic Name Dose Route Start Last Admin Trade Name Freq PRN Reason Stop Dose Admin Acetaminophen 650 mg 05/10/19 21:30 05/18/19 07:03 Tylenol - PO 650 mg Q4H PRN Administration PAIN OR FEVER Bacitracin 1 applic 05/16/19 10:00 05/19/19 10:02 Bacitracin - TP Not Given DAILY ELIESER Enoxaparin Sodium 40 mg 05/17/19 17:00 05/19/19 10:02 Lovenox - SQ 40 mg DAILY ELIESER Administration Piperacillin Sod/Tazobactam 50 mls @ 100 mls/hr 05/16/19 12:00 05/19/19 10:02 Sod 3.375 gm/ Dextrose IVPB 100 mls/hr Q8H-IV ELIESER Administration Protocol Ondansetron HCl 4 mg 05/10/19 16:15 Zofran Injection IVPUSH Q6H PRN NAUSEA AND/OR VOMITING Oxycodone HCl 5 mg 05/15/19 17:57 05/18/19 23:47 Roxicodone - PO 5 mg Q6H PRN Administration PAIN LEVEL 6-10 Silver Sulfadiazine 1 applic 05/18/19 10:00 05/19/19 10:03 Silvadene - TP 1 applic DAILY ELIESER Administration ASSESSMENT/PLAN: 48 y/o man with no PMH who presented with abd pain and was found to have acute appendicitis. #Pericolic abscess - ANGELO tube draining serosanguinous fluid. - IR drained abscess. - Cx pending. - Dr. Talavera- continue zosyn and monitor. - pain control with oxycodone - zofran for nausea - incentive иван. - pt needs to be taught how to drain the ANGELO (as per surgery), may need PO ABX at home. - tolerating incentive иван better #bullae around gauze tape - likely 2/2 contact dermatitis, still there today - on silver sulfadiazine cream, awaiting cx of abscess before d/c likely will d/ c tm. FEN: No fluids indicated, monitor lytes, regular diet. DVT PPX: back on lovenox 40mg SQ after IR drainage. Visit type - Emergency Visit Emergency Visit: Yes ED Registration Date: 05/09/19 Care time: The patient presented to the Emergency Department on the above date and was hospitalized for further evaluation of their emergent condition. - New Patient This patient is new to me today: No - Critical Care Critical Care patient: No - Discharge Referral Referred to [facility] Med [facility].C[facility] No ATTENDING PHYSICIAN STATEMENT I saw and evaluated the patient. I reviewed the resident's note and discussed the case with the resident. I agree with the resident's findings and plan as documented. SUBJECTIVE: OBJECTIVE: ASSESSMENT AND PLAN:
--- NOTE | 2019-05-19 14:59 | PN ---
Teaching Attending Note Name of Resident: Narendra Montano ATTENDING PHYSICIAN STATEMENT I saw and evaluated the patient. I reviewed the resident's note and discussed the case with the resident. I agree with the resident's findings and plan as documented. SUBJECTIVE: Patient feels better today, no fever or chill, no shortness of breath. No nausea or vomiting. OBJECTIVE: Vital Signs Temperature 99.6 F 05/19/19 09:00 Pulse Rate 94 H 05/19/19 09:00 Respiratory Rate 20 05/19/19 09:00 Blood Pressure 104/65 05/19/19 09:00 O2 Sat by Pulse Oximetry (%) 97 05/18/19 20:14 GENERAL: AA0x3. in no acute distress. HEAD: Normal with no signs of trauma. NECK: supple. LUNGS: Breath sounds equal, clear to auscultation bilaterally, no wheezes, no crackles, no accessory muscle use. HEART: Regular rate and rhythm, S1, S2 without murmur, rub or gallop. ABDOMEN: 2 ANGELO drainage s/p 2nd ANGELO clearing up the drainage more serasanginous , no rebound. Bowel sound positive. EXTREMITIES: 2+ pulses, warm, well-perfused, no edema. NEUROLOGICAL: Cranial nerves II through XII grossly intact. Normal speech, gait not observed. PSYCH: Normal mood, normal affect. SKIN: Warm, dry, [address], drainage is reduced today, bullae due to tape applied Silvadene cream. CBCD WBC 8.0 K/mm3 (4.0-10.0) 05/19/19 06:45 RBC 4.50 M/mm3 (4.00-5.60) 05/19/19 06:45 Hgb 13.8 GM/dL (11.7-16.9) 05/19/19 06:45 Hct 41.3 % (35.4-49) 05/19/19 06:45 MCV 91.8 fl (80-96) 05/19/19 06:45 MCHC 33.5 g/dl (32.0-35.9) 05/19/19 06:45 RDW 12.9 % (11.9-15.9) 05/19/19 06:45 Plt Count 533 K/MM3 (134-434) H 05/19/19 06:45 MPV 7.1 fl (7.5-11.1) L 05/19/19 06:45 CMP Sodium 139 mmol/L (136-145) 05/19/19 06:45 Potassium 4.4 mmol/L (3.5-5.1) 05/19/19 06:45 Chloride 103 mmol/L (98-107) 05/19/19 06:45 Carbon Dioxide 28 mmol/L (21-32) 05/19/19 06:45 Anion Gap 9 MMOL/L (8-16) 05/19/19 06:45 BUN 16.4 mg/dL (7-18) 05/19/19 06:45 Creatinine 0.9 mg/dL (0.55-1.3) 05/19/19 06:45 Random Glucose 89 mg/dL (74-106) 05/19/19 06:45 Calcium 9.0 mg/dL (8.5-10.1) 05/19/19 06:45 Total Bilirubin 0.3 mg/dL (0.2-1) 05/19/19 06:45 AST 28 U/L (15-37) 05/19/19 06:45 ALT 67 U/L (13-61) H 05/19/19 06:45 Alkaline Phosphatase 77 U/L (45-117) 05/19/19 06:45 Total Protein 6.8 g/dl (6.4-8.2) 05/19/19 06:45 Albumin 2.6 g/dl (3.4-5.0) L 05/19/19 06:45 Current Medications Generic Name Dose Route Start Last Admin Trade Name Freq PRN Reason Stop Dose Admin Acetaminophen 650 mg 05/10/19 21:30 05/18/19 07:03 Tylenol - PO 650 mg Q4H PRN Administration PAIN OR FEVER Bacitracin 1 applic 05/16/19 10:00 05/19/19 10:02 Bacitracin - TP Not Given DAILY ELIESER Enoxaparin Sodium 40 mg 05/17/19 17:00 05/19/19 10:02 Lovenox - SQ 40 mg DAILY ELIESER Administration Piperacillin Sod/Tazobactam 50 mls @ 100 mls/hr 05/16/19 12:00 05/19/19 10:02 Sod 3.375 gm/ Dextrose IVPB 100 mls/hr Q8H-IV ELIESER Administration Protocol Ondansetron HCl 4 mg 05/10/19 16:15 Zofran Injection IVPUSH Q6H PRN NAUSEA AND/OR VOMITING Oxycodone HCl 5 mg 05/15/19 17:57 05/18/19 23:47 Roxicodone - PO 5 mg Q6H PRN Administration PAIN LEVEL 6-10 Silver Sulfadiazine 1 applic 05/18/19 10:00 05/19/19 10:03 Silvadene - TP 1 applic DAILY ELIESER Administration Home Medications Medication Instructions Recorded Ibuprofen [Ibu] 600 mg PO Q6H PRN #20 tablet 05/11/19 Microbiology 05/17/19 10:45 Abscess Gram Stain - Final 05/17/19 10:45 Abscess Body Fluid Culture - Final Escherichia Coli Enterococcus Avium 05/17/19 10:45 Abscess Anaerobic Culture - Preliminary Pending Organism 05/17/19 10:45 Abscess AFB Smear Concentration - Preliminary 05/17/19 10:45 Abscess Mycobacterial Culture - Preliminary 05/13/19 12:00 Abdomen Gram Stain - Final 05/13/19 12:00 Abdomen Body Fluid Culture - Final Escherichia Coli Escherichia Coli#2 Enterococcus Avium 05/13/19 12:00 Abdomen Anaerobic Culture - Final Bacteroides Caccae 05/17/19 10:45 Abscess CONCETTA Preparation - Preliminary 05/17/19 10:45 Abscess Fungal Culture - Preliminary 05/12/19 08:40 Blood - Peripheral Venous Blood Culture - Final NO GROWTH AFTER 5 DAYS INCUBATION 05/12/19 08:55 Blood - Peripheral Venous Blood Culture - Final NO GROWTH AFTER 5 DAYS INCUBATION 05/12/19 08:00 Urine - Urine Clean Catch Urine Culture - Final NO GROWTH OBTAINED ASSESSMENT AND PLAN: Patient is a 48yo male with no PMHx who presented with abdominal pain and was found to have an acute appendicitis # POD #9 s/p Laprascopic Appendectomy (retrocecal); POD #7 (in IR), by , on IV zosyn continue , record ANGELO output q shift # abdominal abscess , s/p IR drainage x 2 , second drainage 05/17/2019, and ANGELO placement , waiting for final cx before discharging the patient. # Contact dermatitis to tape with Bullae: silvadene cream over the Bullae ; blood cx neg to date ; fluid cx as above ,patient is improving, improving and dc once the final cx is resulted on oral antibiotics. pain control , diet regular ,Cont OOB and ambulate DVT Px: Lovenox
[2019-05-20] MEDS ORDERED: DEXTROSE 5%-WATER - 50 ML IVPB ONE ×3 (01:33→16:57)
[2019-05-20] MEDS ORDERED: PIPERACILLIN/TAZOBACTAM 3.375 GM VIAL IVPB ONE ×3 (01:33→16:57)
[2019-05-20] MEDS: PIPERACILLIN/TAZOB 3.375 GM 3.375 GM in DEXTROSE 5%-WATER - 50 ML IVPB SCH ×3 (01:35→17:01)
[2019-05-20] MEDS ORDERED: PT OWN MED DRAWER 7, Y5N ONE ×2 (06:21→10:17)
[2019-05-20] MEDS: oxyCODONE HCL 5 MG TABLET PO PRN (08:34)
[2019-05-20] MEDS: SILVER SULFADIAZINE 1% TOP CREAM 50 GM JAR TP SCH (10:21)
[2019-05-20] MEDS: BACITRACIN 15 GM TUBE TOPICAL OINTMENT TP SCH (10:21)
[2019-05-20] MEDS: ENOXAPARIN NA (PORCINE) 40 MG/0.4 ML DISP.SYRIN SQ SCH (10:21)
[2019-05-20 11:01] VITALS: BP 98/59; PULSE 94; TEMP 98.4
--- NOTE | 2019-05-20 13:33 | PN ---
Progress Note, Physician History of Present Illness: Pt seen and examined. Events noted. Lab/imaging results reviewed. Pt states he feels much better. Abd pain is resolving, eating well, and having BMs. Remains afebrile. No specific complaints. - Current Medication List Current Medications: Active Medications Acetaminophen (Tylenol -) 650 mg PO Q4H PRN PRN Reason: PAIN OR FEVER Last Admin: 05/18/19 07:03 Dose: 650 mg Bacitracin (Bacitracin -) 1 applic TP DAILY ELIESER Last Admin: 05/20/19 10:21 Dose: 1 applic Enoxaparin Sodium (Lovenox -) 40 mg SQ DAILY ELIESER Last Admin: 05/20/19 10:21 Dose: 40 mg Piperacillin Sod/Tazobactam (Sod 3.375 gm/ Dextrose) 50 mls @ 100 mls/hr IVPB Q8H-IV ELIESER; Protocol Last Admin: 05/20/19 10:20 Dose: 100 mls/hr Ondansetron HCl (Zofran Injection) 4 mg IVPUSH Q6H PRN PRN Reason: NAUSEA AND/OR VOMITING Oxycodone HCl (Roxicodone -) 5 mg PO Q6H PRN PRN Reason: PAIN LEVEL 6-10 Last Admin: 05/20/19 08:34 Dose: 5 mg Silver Sulfadiazine (Silvadene -) 1 applic TP DAILY [facility] Last Admin: 05/20/19 10:21 Dose: 1 applic - Objective Vital Signs: Vital Signs Temperature 98.4 F 05/20/19 08:25 Pulse Rate 94 H 05/20/19 08:25 Respiratory Rate 20 05/20/19 08:25 Blood Pressure 98/59 L 05/20/19 08:25 O2 Sat by Pulse Oximetry (%) 97 05/19/19 21:00 Constitutional: Yes: No Distress, Calm Cardiovascular: Yes: Regular Rate and Rhythm Respiratory: Yes: CTA Bilaterally Gastrointestinal: Yes: Normal Bowel Sounds, Soft, Other (Drain #1 : empty, Drain #2 : small amt of drainage, abd nontender) Genitourinary: Yes: WNL Musculoskeletal: Yes: WNL Extremities: Yes: WNL Integumentary: Yes: WNL Wound/Incision: Yes: Dressing Dry and Intact Neurological: Yes: Alert, Oriented Labs: CBC, BMP 05/19/19 06:45 05/19/19 06:45 INR, PTT INR 1.21 (0.83-1.09) H 05/10/19 07:00 Microbiology 05/17/19 10:45 Abscess Gram Stain - Final 05/17/19 10:45 Abscess Body Fluid Culture - Final Escherichia Coli Enterococcus Avium 05/17/19 10:45 Abscess Anaerobic Culture - Preliminary Anaerobic Gram Neg Bacilli 05/17/19 10:45 Abscess AFB Smear Concentration - Preliminary 05/17/19 10:45 Abscess Mycobacterial Culture - Preliminary 05/13/19 12:00 Abdomen Gram Stain - Final 05/13/19 12:00 Abdomen Body Fluid Culture - Final Escherichia Coli Escherichia Coli#2 Enterococcus Avium 05/13/19 12:00 Abdomen Anaerobic Culture - Final Bacteroides Caccae 05/17/19 10:45 Abscess CONCETTA Preparation - Preliminary 05/17/19 10:45 Abscess Fungal Culture - Preliminary 05/12/19 08:40 Blood - Peripheral Venous Blood Culture - Final NO GROWTH AFTER 5 DAYS INCUBATION 05/12/19 08:55 Blood - Peripheral Venous Blood Culture - Final NO GROWTH AFTER 5 DAYS INCUBATION 05/12/19 08:00 Urine - Urine Clean Catch Urine Culture - Final NO GROWTH OBTAINED - ....Imaging Cat Scan: Report Reviewed Problem List - Problems (1) Appendicitis, acute Code(s): K35.80 - UNSPECIFIED ACUTE APPENDICITIS Qualifiers: Acute appendicitis type: unspecified acute appendicitis type Qualified Code (s): K35.80 - Unspecified acute appendicitis Assessment/Plan Acute Appendicitis s/p Lap appendectomy Abd abscess x 2 s/p drainage -- Pt afebrile, leukocytosis resolved, abd pain improved -- If plan is for discharge home may change to Augmentin 875 mg po BID and Flagyl 500 mg po TID x 10 days -- Needs close surgical follow up, follow up with PMD -- Suggest repeat CT as outpt to assess for resolution of collections -- Pt instructed to seek immediate medical attention/return to ER if develops worsening abd pain/fever/diarrhea/rash or any other adverse effects d/w Hospitalist
--- NOTE | 2019-05-20 14:44 | DS ---
Physical Exam: SUBJECTIVE: Patient seen and examined Patient is feeling better with no acute distress, no shortness of breath, no nausea or vomiting. OBJECTIVE: Vital Signs Temperature 98.4 F 05/20/19 08:25 Pulse Rate 94 H 05/20/19 08:25 Respiratory Rate 20 05/20/19 08:25 Blood Pressure 98/59 L 05/20/19 08:25 O2 Sat by Pulse Oximetry (%) 97 05/19/19 21:00 PHYSICAL EXAM GENERAL: AA0x3. in no acute distress. HEAD: Normal with no signs of trauma. NECK: supple. LUNGS: Breath sounds equal, clear to auscultation bilaterally, no wheezes, no crackles, no accessory muscle use. HEART: Regular rate and rhythm, S1, S2 without murmur, rub or gallop. ABDOMEN: 2 ANGELO drainage s/p 2nd ANEGLO clearing up the drainage more serasanginous , no rebound. Bowel sound positive. EXTREMITIES: 2+ pulses, warm, well-perfused, no edema. NEUROLOGICAL: Cranial nerves II through XII grossly intact. Normal speech, gait not observed. PSYCH: Normal mood, normal affect. SKIN: Warm, dry, [address], drainage is reduced today, bullae due to tape applied Silvadene cream. LABS CBCD WBC 8.0 K/mm3 (4.0-10.0) 05/19/19 06:45 RBC 4.50 M/mm3 (4.00-5.60) 05/19/19 06:45 Hgb 13.8 GM/dL (11.7-16.9) 05/19/19 06:45 Hct 41.3 % (35.4-49) 05/19/19 06:45 MCV 91.8 fl (80-96) 05/19/19 06:45 MCHC 33.5 g/dl (32.0-35.9) 05/19/19 06:45 RDW 12.9 % (11.9-15.9) 05/19/19 06:45 Plt Count 533 K/MM3 (134-434) H 05/19/19 06:45 MPV 7.1 fl (7.5-11.1) L 05/19/19 06:45 CMP Sodium 139 mmol/L (136-145) 05/19/19 06:45 Potassium 4.4 mmol/L (3.5-5.1) 05/19/19 06:45 Chloride 103 mmol/L (98-107) 05/19/19 06:45 Carbon Dioxide 28 mmol/L (21-32) 05/19/19 06:45 Anion Gap 9 MMOL/L (8-16) 05/19/19 06:45 BUN 16.4 mg/dL (7-18) 05/19/19 06:45 Creatinine 0.9 mg/dL (0.55-1.3) 05/19/19 06:45 Random Glucose 89 mg/dL (74-106) 05/19/19 06:45 Calcium 9.0 mg/dL (8.5-10.1) 05/19/19 06:45 Total Bilirubin 0.3 mg/dL (0.2-1) 05/19/19 06:45 AST 28 U/L (15-37) 05/19/19 06:45 ALT 67 U/L (13-61) H 05/19/19 06:45 Alkaline Phosphatase 77 U/L (45-117) 05/19/19 06:45 Total Protein 6.8 g/dl (6.4-8.2) 05/19/19 06:45 Albumin 2.6 g/dl (3.4-5.0) L 05/19/19 06:45 Current Medications Generic Name Dose Route Start Last Admin Trade Name Freq PRN Reason Stop Dose Admin Acetaminophen 650 mg 05/10/19 21:30 05/18/19 07:03 Tylenol - PO 650 mg Q4H PRN Administration PAIN OR FEVER Bacitracin 1 applic 05/16/19 10:00 05/20/19 10:21 Bacitracin - TP 1 applic DAILY ELIESER Administration Enoxaparin Sodium 40 mg 05/17/19 17:00 05/20/19 10:21 Lovenox - SQ 40 mg DAILY ELIESER Administration Piperacillin Sod/Tazobactam 50 mls @ 100 mls/hr 05/16/19 12:00 05/20/19 10:20 Sod 3.375 gm/ Dextrose IVPB 100 mls/hr Q8H-IV ELIESER Administration Protocol Ondansetron HCl 4 mg 05/10/19 16:15 Zofran Injection IVPUSH Q6H PRN NAUSEA AND/OR VOMITING Oxycodone HCl 5 mg 05/15/19 17:57 05/20/19 08:34 Roxicodone - PO 5 mg Q6H PRN Administration PAIN LEVEL 6-10 Silver Sulfadiazine 1 applic 05/18/19 10:00 05/20/19 10:21 Silvadene - TP 1 applic DAILY ELIESER Administration Home Medications Medication Instructions Recorded Ibuprofen [Ibu] 600 mg PO Q6H PRN #20 tablet 05/11/19 Amoxicillin/Potassium Clav 1 each PO BID #20 tablet 05/20/19 [Augmentin 875-125 Tablet] Silver Sulfadiazine 1% Top Cr 1 applic TP DAILY #1 jar 05/20/19 [Silvadene -] metroNIDAZOLE [Flagyl -] 500 mg PO DAILY #30 tablet 05/20/19 Microbiology 05/17/19 10:45 Abscess Gram Stain - Final 05/17/19 10:45 Abscess Body Fluid Culture - Final Escherichia Coli Enterococcus Avium 05/17/19 10:45 Abscess Anaerobic Culture - Preliminary Anaerobic Gram Neg Bacilli 05/17/19 10:45 Abscess AFB Smear Concentration - Preliminary 05/17/19 10:45 Abscess Mycobacterial Culture - Preliminary 05/13/19 12:00 Abdomen Gram Stain - Final 05/13/19 12:00 Abdomen Body Fluid Culture - Final Escherichia Coli Escherichia Coli#2 Enterococcus Avium 05/13/19 12:00 Abdomen Anaerobic Culture - Final Bacteroides Caccae 05/17/19 10:45 Abscess CONCETTA Preparation - Preliminary 05/17/19 10:45 Abscess Fungal Culture - Preliminary 05/12/19 08:40 Blood - Peripheral Venous Blood Culture - Final NO GROWTH AFTER 5 DAYS INCUBATION 05/12/19 08:55 Blood - Peripheral Venous Blood Culture - Final NO GROWTH AFTER 5 DAYS INCUBATION 05/12/19 08:00 Urine - Urine Clean Catch Urine Culture - Final NO GROWTH OBTAINED HOSPITAL COURSE: Date of Admission:05/09/19 Date of Discharge: 05/20/19 Patient is a 48yo male with no PMHx who presented with abdominal pain and was found to have an acute appendicitis # POD #10 s/p Laprascopic Appendectomy (retrocecal); POD #8 (in IR), by . follow up with Dr. Manley on Wednesday , for ANGELO drainange removal discussed with Dr.Roya janine GORDON for Dr. Talavera , patient should be discharged on Flagyl and Augmentin for 10 days. # abdominal abscess , s/p IR drainage x 2 , second drainage 05/17/2019, and ANGELO placement , final cx as above . # Contact dermatitis to tape with Bullae: silvadene cream ordered as well. blood cx neg to date ; fluid cx as above. Discussed with , will follow up with him On Wednesday also was suggested if patient develops fever to come back to the hospital. Minutes to complete discharge: 35 Discharge Summary Reason For Visit: ACUTE APPENDICITIS Condition: Improved - Instructions Diet, Activity, Other Instructions: Dr. Manley Discharge Instructions Dear SHAVONNE CORNEJO, Post Operative Instructions Physical activity Resume your normal everyday activity as tolerated no heavy lifting or exercise until seen by your surgeon. You may walk unlimited amounts of and climb stairs. You may resume driving the car when you feel safe and comfortable behind the wheel. Wound care If you have a bandage, leave it on, and keep dry for 48 - 72 hours. After that time discard the outer bandage. If there are tapes on the skin under the outer bandage, leave them in place. They will peel off in the next 7 to 10 days. Do Not peel them off. You may shower 2 days after surgery. If there are tapes present on the skin, they can get wet. Daniel-Singh Drain Measure and record the amount from each drain into a log book and bring with you to your post-operative visit. Drain(s) will be removed in Dr. Manley's office. Diet There are no dietary restrictions. Eat healthy, high-fiber foods. Drink 6 to 8 glasses of liquid each day. This will assist in keeping your bowels are regular. Pain management Ibuprofen (for example, Motrin, Advil etc.) every 6 hours as needed by mouth daily with food. Antibiotics Medication Will be sent to your pharmacy after Infectious Disease makes their recommendation. Take as directed to completion of medication. Call Dr. Manley for any of the following: Severe pain not relieved by medication Fever of 101 or higher Excessive bleeding or drainage on dressing Inability to urinate Call the office at [phone] for a post operative appointment in 7 - 10 days. Call for this Wednesday for follow up with . Medicine Team: You were admitted for having inflammation in your appendix. We had the surgery team see you and they removed your appendix. - Follow up with me (Dr. Narendra Montano) as your primary care physician in 2 weeks. - Return to the emergency room if you are complaining of worsening abdominal pain, chest pain, or shortness of breath. Referrals: Milton Manley MD [Staff Physician] - 05/23/19 Narendra Montano RES [Resident] - 1 Week Disposition: HOME - Home Medications Comprehensive Discharge Medication List: Ambulatory Orders Ibuprofen [Ibu] 600 mg PO Q6H PRN #20 tablet 05/11/19 Amoxicillin/Potassium Clav [Augmentin 875-125 Tablet] 1 each PO BID #20 tablet 05/20/19 Silver Sulfadiazine 1% Top Cr [Silvadene -] 1 applic TP DAILY #1 jar 05/20/19 metroNIDAZOLE [Flagyl -] 500 mg PO DAILY #30 tablet 05/20/19 This patient is new to me today: No Emergency Visit: No Critical Care patient: No - Discharge Referral Referred to [facility] No
== END 2019-05-20 17:50 | disposition home or self-care (01) | DRG 225 ==
LOC: JERFT 18:01 → JER 18:01 → JERBED 23:43 → J8W 05-10 01:23
PROVIDERS: ADMIT Internal Medicine; ATTEND Internal Medicine
PROC: 0DTJ4ZZ Resection of Appendix, Percutaneous Endoscopic Approach (ICD-10-PCS; principal; 2019-05-10 12:30)
PROC: 0W9G30Z Drainage of Peritoneal Cavity with Drainage Device, Percutaneous Approach (ICD-10-PCS; 2019-05-12)
PROC: 0W9G30Z Drainage of Peritoneal Cavity with Drainage Device, Percutaneous Approach (ICD-10-PCS; 2019-05-17)
DX: K35.33 Acute appendicitis with perforation, localized peritonitis, and gangrene, with abscess (principal); K65.1 Peritoneal abscess; J98.11 Atelectasis; R10.11 Right upper quadrant pain; D72.829 Elevated white blood cell count, unspecified; R50.82 Postprocedural fever; L25.9 Unspecified contact dermatitis, unspecified cause
CPT/HCPCS: 36415; 49406; 71045-TC-FY; 71046-TC-FY; 74176-TC; 74177-TC; 76098-TC-FY; 80053; 81003; 83605; 83690; 83735; 85025; 85027; 85610; 85730; 86850; 86900; 86901; 87040; 87070; 87075; 87076; 87086; 87102; 87116; 87186; 87205; 87206; 87210; 87899; 88304-TC; 93005; 93010; 94760; 99283-25; C1729; C1769; J0131; Q9967

== ENCOUNTER → 2019-06-20 | Day surgery (SDC) | payer OTHER | LOC: JRADIR 10:27 ==

== ENCOUNTER 2021-09-15 13:03 | Emergency (ER) | payer OTHER ==
[2021-09-15 13:15] VITALS: BP 119/76; PULSE 100; TEMP 97.9; BMI 25.7
[2021-09-15] MEDS ORDERED: KETOROLAC TROMETHAMINE 60 MG/2 ML VIAL IM ONE (13:44)
[2021-09-15] MEDS ORDERED: KETOROLAC TROMETHAMINE 60 MG/2 ML VIAL ONE (13:52)
== END 2021-09-15 17:25 | disposition short-term general hospital (02) ==
LOC: JERFT 13:03
PROC: 3E0233Z Introduction of Anti-inflammatory into Muscle, Percutaneous Approach (ICD-10-PCS; principal; 2021-09-15)
DX: S82.892A Other fracture of left lower leg, initial encounter for closed fracture (principal); W11.XXXA Fall on and from ladder, initial encounter
CPT/HCPCS: 73610-TC-LT-FY; 73630-TC-LT; 96372; 99284-25; C9803; U0003; U0005